=== PATIENT | female | born 1950 | race Caucasian/White ===

== ENCOUNTER 2019-06-09 16:30 | Outpatient (RCR) | payer MEDICARE, OTHER, SELFPAY ==
--- NOTE | 2019-06-13 10:38 | PCCPR ---
Absent r/t coronavirus until further notice. 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
--- NOTE | 2019-06-22 09:48 | PCCPR ---
Program is temporarily suspended due to COVID outbreak.
--- NOTE | 2019-07-06 10:40 | PCCPR ---
Left message for Celi-checking in.
--- NOTE | 2019-07-13 14:41 | PCCPR ---
Called to check in. Left voicemail. Will follow weekly.
--- NOTE | 2019-07-27 13:54 | PCCPR ---
Weekly update call-Left message informing patient of continued closure through the month of July due to the extension of the detention in place order.
--- NOTE | 2019-08-11 13:05 | PCCPR ---
Starting Bi-Weekly calls. Left message for patient.
--- NOTE | 2019-08-25 15:18 | PCCPR ---
Message left for Celi inquiring how everything is going. Asking if she has any questions or concerns. Left our number if she wanted us to return her call. Also let her know we will be calling every couple of weeks for updates from her and our plans to reopen.
--- NOTE | 2019-09-16 13:40 | PCCPR ---
Called Celi today, no answer, message left.
== END 2019-06-09 23:59 | disposition home or self-care (01) ==
LOC: ANHCPREHAB 16:30
PROVIDERS: Visit Provider Internal Medicine Pulmonary Disease
DX: J84.9 Interstitial pulmonary disease, unspecified (principal)
CPT/HCPCS: 97150; G0424

== ENCOUNTER 2024-08-21 12:43 | Emergency (ER) | payer MEDICARE, SELFPAY ==
--- NOTE | ~2024-08-21 | XR_ITS ---
XR abdomen gastric tube rechec Ordering provider: Mohan Chase MD History: . Gastric tube replaced 30 CCS GASTROGRAFIN INSERTED . Comparison: None. FINDINGS: BOWEL: Gastrostomy tube is seen in the area of the stomach with contrast. No leak is noted. Nonobstru ctive bowel gas pattern. ORGANOMEGALY: None. SIGNIFICANT PATHOLOGIC CALCIFICATIONS: None. OTHER: No free air is seen under the diaphragm. Dextroscoliosis IMPRESSION: NO ACUTE ABDOMINAL FINDINGS. Status post replacement of gastrostomy tube. Contrast is seen in the stomach Reviewed, dictated and finalized at location A.
[2024-08-21 12:43] VITALS: BP 112/68; PULSE 94; RESP 16; TEMP 36.6; O2SAT 100
--- OUTSIDE RECORDS SUMMARY | 2024-08-21 13:11 | XMS_ITS | Data Portability ---
Author Organization [facility] OFFICE Address [address] [place] [address] Care Team Providers Care Auto Transport Driver Name Role Phone JEFRY TRUJILLO Primary Care Provider [phone] RAH CAI OTHER Assessment No assessment recorded. Plan of Treatment Reminders Order Date Submit Date Provider Last Modified By Organization Details Last Modified Time Details Appointments None recorded . Lab None recorded . Referral None recorded . Procedures None recorded . Surgeries None recorded . Imaging electroc ardiogra m 2018 019 BRIANNE Not available 0 08:14:28 US, echocard iogram, transtho racic, complete , w/ color flow 2018 019 [email or web address] Not available 9 10:31:59 electroc ardiogra m 2018 019 BRIANNE Not available 9 17:13:59 electroc ardiogra m 2018 019 BRIANNE Not available 9 17:15:21 electroc ardiogra m 2018 019 BRIANNE Not available 9 11:53:40 electroc ardiogra m 2018 019 [email or web address] Not available 9 16:09:20 electroc ardiogra m 2018 019 BRIANNE Not available 9 17:33:00 Medication Orders rosuvast atin 20 mg tablet 2018 019 [email or web address] [facility]/Pharmacy #[id number], [address] [place], [address], 0 10:51:43 propafen one 150 mg tablet 2018 019 INTERFACE [facility], [facility], [place], [address], 9 16:02:56 rosuvast atin 20 mg tablet 2018 019 [address] [place], [address], 0 10:51:43 rosuvast atin 20 mg tablet 2018 019 [address] [place], [address], 0 10:51:43 Xarelto 20 mg tablet 2018 019 [email or web address] [facility] [address] [place], [address], 9 15:06:30 Multaq 400 mg tablet 2018 019 [email or web address] [facility] [address] [place], [address], 9 15:53:29 Patient TargetsNo targets recorded. Patient Instructions Encounter Date Encounter Id Patient Instructions Last Modified By Organization Details Last Modified Time 05/04/2018 [id number] Exercise advised Low cholesterol diet advised Low sodium diet advised. Not available 05/04/2018 17:51:04 This document wa s scribed by Margareth [email or web address] Not available 05/04/2018 17:45:42 06/01/2018 [id number] Exercise advised Low cholesterol diet advised Low sodium diet advised. janet Not available 06/01/2018 16:09:03 08/31/2018 [id number] Exercise advised Low cholesterol diet advised Low sodium diet advised. Not available 08/31/2018 16:03:08 Patient was seen and evaluated by {{Luis Ragsdale VEHICLE MODIFICATION TECHNICIAN-C*}}. Plan of care was discussed with collaborating physician. Note cosigned by {{Luis Ureña MD*}}. [email or web address] Not available 08/31/2018 16:03:02 12/07/2018 [id number] Exercise advised . Low cholesterol diet advised. Low sodium diet advised. [email or web address] Not available 12/07/2018 15:29:52 Scribed by Karie Chase VEHICLE MODIFICATION TECHNICIAN-C Not available 12/07/2018 15:29:25 03/08/2019 [id number] Exercise advised Low cholesterol diet advised Low sodium diet advised Not available 03/08/2019 15:21:25 Scribed by Jelena Payan PA-C Not available 03/08/2019 15:22:51 Reason for Referral None Reported. Results Created Date Observation Date Name Description Value Unit Range Abnormal Flag Note LastModifiedBy Organization Detail LastModifiedTime 06/02/19 19 06/01/2018 elect rocar diogr am Result EKG :Sinus bradyc ardia , Low voltag e , chest leads, Poor R progre ssion in chest leads . Not Available Christopher Ureña MD [address] [place], [place], [address], 06/01/2018 15:29:03 04/20/19 19 01/23/2018 elect rocar diogr am No observ ation record ed. [email or web address] Not Available 2018 10:24:51 04/20/19 19 03/11/2018 elect rocar diogr am No observ ation record ed. [email or web address] Not Available 10/12 18:28:55 04/20/19 19 03/11/2018 elect rocar diogr am No observ ation record ed. [email or web address] Not Available 2018 13:33:12 04/29/19 19 04/22/2018 treluis miguel mill nucle ar stres s test (PROC ) No observ ation record ed. [email or web address] Not Available 2018 15:38:31 05/17/19 19 05/10/2018 CT, angio gram, chest , w/wo contr ast No observ ation record ed. [email or web address] Not Available 2018 12:28:37 06/02/19 19 06/01/2018 elect rocar diogr am No observ ation record ed. [email or web address] Not Available 2018 16:31:15 06/02/19 19 06/01/2018 elect rocar diogr am No observ ation record ed. [email or web address] Not Available 2018 16:40:40 09/01/19 19 08/31/2018 elect rocar diogr am No observ ation record ed. Christopher Ureña MD [address] [facility] [place], [place], [address], 08/31/2018 17:15:41 01/25/20 19 01/13/2019 elect rocar diogr am No observ ation record ed. [email or web address] Not Available 2018 16:55:27 03/03/20 19 03/02/2019 elect rocar diogr am No observ ation record ed. [email or web address] [facility] [employer] [facility] [address] [place] [address], [address], 03/08/2019 11:25:51 03/22/20 19 03/08/2019 elect rocar diogr am No observ ation record ed. [email or web address] Not Available 2018 12:21:28 03/24/20 19 03/08/2019 elect rocar diogr am No observ ation record ed. [email or web address] Not Available 2018 13:37:13 Result Notes None recorded. Problems Name Problem SNOMED Code Status Onset Date Resolution Date Notes Provider Name and Address Organization Details Recorded Time Pulmonary embolism 27735508 Active 2017 36 years ago per patient. DEMARIO Leggett [facility] 8 16:06:07 Fibrosis of lung 37343678 Active 2017 recently diagnosed . DEMARIO Leggett [facility] 8 16:05:45 Dyslipide sahra 846270228 [facility] [place] 8 16:03:22 Mitral valve prolapse 240569711 Active 2017 [facility] of [facility] 16:03:48 Former heavy tobacco smoker 416988967304 100 Active 2017 quit 1992 Martinlucia Mathieu [facility] 8 11:59:48 Anxiety 86808204 Active 2017 [facility] 8 16:04:26 Depressiv e disorder 42484766 [facility] 2017 [facility] 8 16:03:09 Posttraum atic stress disorder 89233106 Active 2017 Diagnosed 3 years ago. [facility] 8 16:04:21 Atrial fibrillat ion 35084748 Active 2017 A-Fib started about 3-weeks ago. [facility] 8 16:05:20 High troponin I level 965357516 Active 2017 Julian Murdock [facility] [place] 8 12:03:03 Essential hypertens ion 39455034 Active 2018 Nel Mejia [facility] [place] 9 14:41:47 Paroxysma l atrial fibrillat ion 069038499 Active 2018 Neumann Brightsharon [facility] [place] 9 14:41:55 Idiopathi c pulmonary fibrosis 728020622 Active 2018 Margareth Ragsdale [facility] [place] 9 16:09:39 Notes:all per patient, 03/24/[facility] Problem Notes None recorded. Procedures Surgical History None recorded. Imaging Results Imaging Date Name Status LastModified by Organization Details LastModified Time 01/23/2018 electrocardiogram completed Informa tion not available 04/21/2018 10:24:51 03/11/2018 electrocardiogram completed [email or web address] Informa tion not available 10/12/2018 18:28:55 03/11/2018 electrocardiogram completed Informa tion not available 04/28/2018 13:33:12 04/22/2018 treadmill nuclear stress test (PROC) completed [email or web address] Information not available 04/29/2018 15:38:31 05/10/2018 CT, angiogram, chest, w/wo contrast completed [email or web address] Information not available 05/30/2018 12:28:37 06/01/2018 electrocardiogram completed Informa tion not available 06/01/2018 16:31:15 06/01/2018 electrocardiogram completed Informa tion not available 06/01/2018 16:40:40 08/31/2018 electrocardiogram completed [email or web address] Christopher Pride MD [address], [place], [address], 08/31/2018 17:15:41 01/13/2019 electrocardiogram completed [email or web address] Informa tion not available 01/24/2019 16:55:27 03/02/2019 electrocardiogram completed [email or web address] [facility] [address] [facility] [place] [address], [address], 03/08/2019 11:25:51 03/08/2019 electrocardiogram completed Informa tion not available 03/22/2019 12:21:28 03/08/2019 electrocardiogram completed Informa tion not available 03/24/2019 13:37:13 Procedure Notes None recorded. Medical Equipment None Reported. Allergies Allergen ID Allergen Name Allergen Category Reaction Reaction Severity Criticality Documentation Date Start Date Code Code System Note Provider Name and Address Organization Details Recorded Time 7299 codeine medicatio n Not available Not available Not available 03/20/2018 2670 RxNorm Hala Mathieu [place], [place] - [facility] 8 12:01:22 7300 Substance with sulfonami de structure and antibacte rial mechanism of action (substanc e) medicatio n Not available Not available Not available 03/20/2018 17247 8003 SNOMED Hala Mathieu [place], [place] - [facility] 8 12:01:35 Medications Name Sig Start Date Stop Date Status Note LastModified by Organization Details LastModified Time atorvastat in 40 mg tablet active Not Available Not Available Not Available propafenon e 150 mg tablet Take 1 tablet twice a day by oral route as directe d. 2019 active Not Available Not Available Not Avai lable atorvastat in 20 mg tablet active Not Available Not Available Not Available azithromyc in 250 mg tablet OD active Not Available Not Available Not Available amiodarone 200 mg tablet Take 1 tablet every day by oral route. 07/13 completed Putting pt back on Multaq. Not Available Not Available Not Available sertraline 100 mg tablet OD active Not Available Not Available Not Available ciprofloxa cooper 500 mg tablet 03/24 completed Not Available Not Available Not Available tramadol 50 mg tablet 03/24 completed Not Available Not Available Not Available rifampin 300 mg capsule X2 tabs, OD active Not Available Not Available No t Available ethambutol 400 mg tablet X1 OD active Not Available Not Available Not Available ethambutol 100 mg tablet X3 OD active Not Available Not Available Not Available propranolo l ER 80 mg capsule,24 hr,extende d release 1 tab OD active Not Available Not Available No t Available sertraline 50 mg tablet OD 03/08 completed Not Available Not Available Not Available naproxen 500 mg tablet PRN active NEEDED 06/01/18 : MA Not Available Not Available Not Available amoxicilli n 875 mg-potassi um clavulanat e 125 mg tablet 12/07 completed Not Available Not Available Not Available escitalopr am 20 mg tablet 03/24 completed Not Available Not Available Not Available cyclobenza yuliya 5 mg tablet PRN 03/08 completed NEEDED 06/01/18 : MA Not Available Not Available Not Available rosuvastat in 10 mg tablet Take 1 tablet every day by oral route as directe d. active Not Available Not Available No t Available rosuvastat in 20 mg tablet 1 tab OD 04/12 completed Not Available Not Available Not Available bupropion HCl XL 150 mg 24 hr tablet, extended release active Not Available Not Available Not Available aspirin 325 mg, od active Not Available Not Available No t Available Calcium 500 1200mg od active Not Available Not Available No t Available Multaq 400 mg tablet Take 1 tablet twice a day by oral route. 08/31 completed Not Available Not Available Not Available Probiotic 1 tab, od active Pt take 1 tab every 24 hours . 06/01/18 : MA Not Available Not Available Not Available amikacin 1,000 mg/4 mL injection solution active Not Available Not Available Not Available Suprep Bowel Prep Kit 17.5 gram-3.13 gram-1.6 gram oral solution 12/07 completed Not Available Not Available Not Available Xarelto 20 mg tablet Take 1 tablet every day by oral route with meals. 03/08 completed Pt take 1 tab 20 mg every 24 hours . 06/01/18 : MA Not Available Not Available Not Available Vitamin D2 1000 mg od active Not Available Not Available No t Available Shingrix (PF) 50 mcg/0.5 mL intramuscu lar suspension , kit active Not Available Not Available Not Available Vitals Date Recorded Body height Body mass index (BMI) Body weight Oxygen saturation Oxygen saturation in Arterial blood by Pulse oximetry Heart rate Systolic blood pressure Diastolic blood pressure Provider Name and Address Organization Details Last Updated DateTime 9 152.4 cm 26.2 kg/m2 37112.3 8 g 97 % 97 % 59 /min 112 mm[Hg] 66 mm[Hg] MIGNON VALERIO [facility] [place] 9 17:25:45 Date Recorded Body height Oxygen saturation Oxygen saturation in Arterial blood by Pulse oximetry Heart rate Body mass index (BMI) Body weight Systolic blood pressure Diastolic blood pressure Provider Name and Address Organization Details Last Updated DateTime 9 152.4 cm 91 % 91 % 59 /min 25 kg/m2 05561.4 6 g 110 mm[Hg] 62 mm[Hg] GEETA English [facility] 9 15:24:22 Date Recorded Body height Body mass index (BMI) Body weight Heart rate Oxygen saturation Oxygen saturation in Arterial blood by Pulse oximetry Systolic blood pressure Diastolic blood pressure Provider Name and Address Organization Details Last Updated DateTime 9 152.4 cm 21.9 kg/m2 74158.3 5 g 89 /min 92 % 92 % 104 mm[Hg] 62 mm[Hg] Jorge Gracia [facility] [place] 9 15:49:14 Date Recorded Body height Body mass index (BMI) Body weight Heart rate Oxygen saturation Oxygen saturation in Arterial blood by Pulse oximetry Systolic blood pressure Diastolic blood pressure Provider Name and Address Organization Details Last Updated DateTime 9 152.4 cm 21.3 kg/m2 58322.5 7 g 72 /min 92 % 92 % 98 mm[Hg] 44 mm[Hg] [facility] 9 15:12:29 Date Recorded Body height Body mass index (BMI) Body weight Heart rate Oxygen saturation Oxygen saturation in Arterial blood by Pulse oximetry Systolic blood pressure Diastolic blood pressure Provider Name and Address Organization Details Last Updated DateTime 9 152.4 cm 19.7 kg/m2 17119.8 3 g 88 /min 89 % 89 % 112 mm[Hg] 56 mm[Hg] [facility] 9 15:04:41 Social History Question Answer Notes LastModified by Applaudizat ion Details LastModified Time Tobacco Smoking Status Former Smoker Not Available [facility] 01/31/2020 03:30:42 What Was The Date Of Your Most Recent Tobacco Screening? 03/24/2018 [id number] Information not available 01/31/2020 Sex: Unknown Functional Status None recorded. Mental Status None recorded. Family History Nothing Reported Notes:Father, post open hear t surgery, mother, history of pacemaker both ; one brother living, unknown. 03/24/18 mwu. Medical History Condition Response Atrial Fibrillation Anemia Y Blood Clot High Cholesterol Y Myocardial Infarction Y Hyperlipidemia Y Heart Disease Y Arrhythmia Hematologic Disease N Gynecological HistoryNo gynecological history recorded. Obstetrics History GPAL:G 0 P 0 0 0 0 Past Encounters Encounter ID Performer Location Encounter Start Date Encounter Closed Date Diagnosis/Indication Diagnosis SNOMED-CT Code Diagnosis ICD10 Code Diagnosis Note [id number] Christopher Ureña MD [place] OFFICE [facility] [place] [address] 03/24/2018 14:43:16 03/29/2018 20:25:10 Paroxysmal atrial fibrillation 344458845 I48.0 Now in NSR. {{On Xarelto# O n Full dose ASA On ASA no need for anti coagulatio n Can not have anti coagulatio n due to bleeding Can not have anti coagulatio n due to risk of bleed}} , will change amiodarone to Multaq 400 bid Dyspnea on exertion 6084 5006 R06.09 Could be angina equivalent Treadmill Myoview Stress test, has high Damar Risk score. Has Known CAD, or CAD risk equivalent . To look for any ischemia. Dyslipidemia 160263798 E 78.5 Essential hypertension 07556773 I10 on InderalNow well controlled [id number] Christopher Ureña MD [place] OFF[facility] [place] [address] 05/04/2018 17:05:50 05/04/2018 23:15:41 Paroxysmal atrial fibrillation 439539953 I48.0 Now in NSR. {{On Xarelto# O n Full dose ASA On ASA no need for anti coagulatio n Can not have anti coagulatio n due to bleeding Can not have anti coagulatio n due to risk of bleed}} , and Multaq 400 bid Dyspnea on exertion 6084 5006 R06.09 Could be angina equivalent Had positive stress test done in 04/22/18 with ischemia in anterior area, normal LV systolic function , EF 76% . Will arrange for cardiac CTA, he has high Damar Risk score. he would benefit from CT to look for any Coronary Artery Disease Dyslipidemia 441121172 E 78.5 Essential hypertension 46793498 I10 on InderalNow well controlled [id number] Christopher Ureña MD [place] OFF[facility] [place] [address] 06/01/2018 14:35:46 06/01/2018 16:10:14 Paroxysmal atrial fibrillation 250463080 I48.0 Now in NSR. {{On Xarelto # On Full dose ASA On ASA no need for anti coagulatio n Can not have anti coagulatio n due to bleeding Can not have anti coagulatio n due to risk of bleed}} , and Multaq 400 bidnow in NSROK To DC Xarelto, and start on ASA Full dose Dyspnea on exertion 6084 5006 R06.09 denies any dyspnea at present Dyslipidemia 167991670 E 78.5 on Rosuvastat in 20mg. on 03/26/18 FLP: TR 101, TC 159, HDL 66, LDL 75 Essential hypertension 39824149 I10 on InderalNow well controlled - 110/62 [id number] Christopher Ureña MD [place] OFF[facility] [place] [address] 08/31/2018 15:17:49 09/06/2018 20:36:55 Paroxysmal atrial fibrillation 835687358 I48.0 Remains in NSR at a controlled rate.She was started on Amiodarone in the hospital then it was discontinu ed and changed to Multaq but made her very sick so she was changed to propafenon e 150 mg PO BID. She is also on Propranolo l and is doing well with thatOn full dose ASA. Dyspnea on exertion 6084 5006 R06.09 Stable at present.Bajwa d cardiac CTA done in 05/10/18 showed No significan t coronary artery disease.id iopathy pulmonary fibrosis, pulmonary hypertensi on Dyslipidemia 506598483 E 78.5 Needs to keep LDL less than 70, and HDL more than 40 Will get lipid profile results from PCP Continue statin. Essential hypertension 93845561 I10 Stable on Inderal. Also being used to migraine headaches. Pulmonary embolism 31236 003 I26.99 distant hx of. Idiopathic pulmonary fibrosis 829675704 J84.112 She follows a pulmonolog ist at [facility] for idiopathy pulmonary fibrosis and pulmonary HTN. Having a CT scan November 09. [id number] Christopher Ureña MD [place] OFF[facility] [place] [address] 12/07/2018 15:01:09 12/07/2018 15:49:46 Paroxysmal atrial fibrillation 971846682 I48.0 Remains in NSR at a controlled rate.She was started on Amiodarone in the hospital then it was discontinu ed and changed to Multaq but made her very sick so she was changed to propafenon e 150 mg PO BID. She is also on Propranolo l and is doing well with thatOff Xarelto. On full dose ASA. Dyspnea on exertion 6084 5006 R06.09 Stable at present.Bajwa d cardiac CTA done in 05/10/18 showed No significan t coronary artery disease.id iopathy pulmonary fibrosis, pulmonary hypertensi on Dyslipidemia 126247721 E 78.5 Needs to keep LDL less than 70, and HDL more than 40 Scheduled for lipid profile with her PCP tomorrow Continue statin. Essential hypertension 74547829 I10 Stable on Inderal. Also being used to migraine headaches. Idiopathic pulmonary fibrosis 066401068 J84.112 She follows a pulmonolog ist at [facility] for idiopathy pulmonary fibrosis and pulmonary HTN. Had a CT which showed a new nodule. Patient will continue to follow up with the pulmonolog ist. Pulmonary embolism 46444 003 I26.[place]. [id number] Christopher Ureña MD [address] [place] [address] 03/08/2019 14:35:34 03/08/2019 15:33:06 Paroxysmal atrial fibrillation 896464037 I48.0 Remains in NSR at a controlled rate.She was started on Amiodarone in the hospital then it was discontinu ed and changed to Multaq but made her very sick so she was changed to propafenon e 150 mg PO BID. She is also on Propranolo l and is doing well with thatOff Xarelto. On full dose ASA. Dyspnea on exertion 6084 5006 R06.09 Stable at present.Bajwa d cardiac CTA done in 05/10/18 showed No significan t coronary artery disease.id iopathy pulmonary fibrosis, pulmonary hypertensi on Dyslipidemia 697891023 E 78.5 Needs to keep LDL less than 70, and HDL more than 40 LDL 75 Continue statin. Essential hypertension 06361561 I10 Stable on Inderal. Also being used for migraine headaches. Idiopathic pulmonary fibrosis 151734382 J84.112 She follows a pulmonolog ist at [facility] for idiopathy pulmonary fibrosis and pulmonary HTN. Had a CT which showed a new nodule. Patient will continue to follow up with the pulmonolog ist. Pulmonary embolism 82042 003 I26.99 distant hx of PE, no recurrence Health Concerns Section Related Observation LastModified by Organization Detai ls LastModified Time None Recorded Concern Status LastModified by Organization Details LastModified Time None Recorded Advance Directives Directive None Recorded Payers Insurance Date Sequence Insurance Name Policy Number Policy Velázquez Covered Member ID Velázquez Member ID Guarantor Name 04/04/2019 2 [employer] Celi Collins [id number] Celi Collins 04/04/2019 1 [place] Celi Collins [id number] Celi oCllins Notes Date Note Type Note Provider Name and Address Organization Details Recorded Time 05/04/2018 text/html 05/04/18 CC: Palpitation 68 year-old woman with a PMH of paroxysmal atrial fibrilation, PE, hypertension, former tobacco dependence, is here for follow-up. She was in the hospital with afib, and diastolic Congestive Heart Failure in 02/2018. She then converted to NSR, was started on Amiodarone, she feels well now. Very rare palpitations. Also had NSTEMI. she now feels OK, she had nausea, and abdominal pain, she thinks it is from Multaq. Had positive stress test done in 04/22/18 with ischemia in anterior area, normal LV systolic function , EF 76% .No known history of coronary artery disease, previous myocardial infarction, heart failure, valvular heart disease,or stroke reported. Denies chest pain. Denies shortness of breath at rest. Denies dyspnea on exertion. No orthopnea. No PNDs. Denies heart palpitations. Denies dizziness. Denies syncope or near syncope. No ankle or leg edema. No major bleeding events. No reported side effects from medications. Taking medications as prescribed with no missed doses. Denies snoring, daytime somnolence and AM headache. Results from this visit, or from the past: CMP, serum or plasma 03-26-2018 03/26/18 CMP: GL 96, B 16, CR 0.80, NA 140, K 4.5, CH 104, CO2 27, AST 23, ALT 17 lipid panel, blood 03-26-2018 03/26/18 FLP: TR 101, TC 159, HDL 66, LDL 75 Attachment contains 2 Lab Results including: CMP, serum or plasma 1 Historical EKG Sinus Bradycardia, Low voltage chest leads, Poor R progression in chest leads. 03/24/18 Christopher Ureña MD [address] [place], [address], [facility] 05/04/2018 23:15:39 06/01/2018 text/html 06/01/18 CC: Palpitations follow-up 68 year-old white woman with a PMH of paroxysmal atrial fibrilation, PE, hypertension, former tobacco dependence, is here for follow-up. She was here last one month ago. Since then she has been doing fairy well. She was in the hospital with afib, and diastolic Congestive Heart Failure in 02/2018. She then converted to NSR, was started on Amiodarone, it was discontinued and is now on Multaq. Denies chest pain. Denies shortness of breath at rest. Denies dyspnea on exertion. No orthopnea. No PNDs. She has rare heart palpitations. Denies dizziness. Denies syncope or near syncope. No ankle or leg edema. No major bleeding events. Only reported side effects from medications was diarrhea which she believes is from the Sertraline, but symptoms are not as bad as they had been. Taking medications as prescribed with no missed doses. She does snore at night, had a negative sleep study in the past. Does not get but four hours of sleep at night. Had positive stress test done in 04/22/18 with ischemia in anterior area, normal LV systolic function , EF 76%. Had cardiac CTA done in 05/10/18 showed No significant coronary artery disease. No previous myocardial infarction, heart failure, valvular heart disease,or stroke reported. Results from this visit, or from the past:03/26/18 FLP: TR 101, TC 159, HDL 66, LDL CMP: GL 96, B 16, CR 0.80, NA 140, K 4.5, CH 104, CO2 27, AST 23, ALT FLP: TR 101, TC 159, HDL 66, LDL 75 EKG 06/01/18 :Sinus bradycardia , Low voltage , chest leads, Poor R progression in chest leads .EKG 03/24/18 : Sinus Bradycardia, Low voltage chest leads, Poor R progression in chest leads.EKG Sinus Bradycardia, Low voltage chest leads, Poor R progression in chest leads. 03/24/18 05/10/18 CTA Chest: No significant coronary artery disease. 04/22/18-Positive stress test.Reversible defect consistent with ischemia in anterior area. Normal LV systolic function. LVEF 76%. Christopher Ureña MD [address] [place], [address], [facility] 06/01/2018 16:10:12 08/31/2018 text/html 08/31/18 CC: Palpitations follow-up 68 year-old white woman with a PMH of paroxysmal atrial fibrilation, PE, idiopathy pulmonary fibrosis, pulmonary hypertension, hypertension, former tobacco dependence presents today for follow-up. She was here last 3 months ago. Down 6 lbs. Reports that food doesn't taste the same anymore. Since then she has been doing ok but not great. For the last three days, she reports some fatigue and SOB. Denies any fever, chills or syncope. Admites on having some lightheadedness. She was in the hospital with afib, and diastolic Congestive Heart Failure in 02/2018. She then converted to NSR, was started on Amiodarone, it was discontinued and changed to Multaq but made her very sick so she was changed to propafenone 150 mg PO BID. She is also on Propranolol and is doing well with that. She is currently in NSR with a controlled rate. Denies chest pain. Denies shortness of breath at rest. Denies dyspnea on exertion. No orthopnea. No PNDs. She has rare heart palpitations. Denies dizziness. Denies syncope or near syncope. No ankle or leg edema. No major bleeding events. Only reported side effects from medications was diarrhea which she believes is from the Sertraline, but symptoms are not as bad as they had been. Taking medications as prescribed with no missed doses. She does snore at night, had a negative sleep study in the past. Does not get but four hours of sleep at night. Had positive stress test done in 04/22/18 with ischemia in anterior area, normal LV systolic function , EF 76%. Had cardiac CTA done in 05/10/18 showed No significant coronary artery disease. No previous myocardial infarction, heart failure, valvular heart disease,or stroke reported. She follows a personal banking assistant at [facility] for idiopathy pulmonary fibrosis and pulmonary HTN. Having a CT scan November 09. Results from this visit, or from the past:03/26/18 FLP: TR 101, TC 159, HDL 66, LDL CMP: GL 96, B 16, CR 0.80, NA 140, K 4.5, CH 104, CO2 27, AST 23, ALT FLP: TR 101, TC 159, HDL 66, LDL 75 EKG 08/31/18 AM Probably old anterior myocardial infarction EKG 06/01/18 :Sinus bradycardia , Low voltage , chest leads, Poor R progression in chest leads .EKG 03/24/18 : Sinus Bradycardia, Low voltage chest leads, Poor R progression in chest leads.EKG Sinus Bradycardia, Low voltage chest leads, Poor R progression in chest leads. 03/24/18 05/10/18 CTA Chest: No significant coronary artery disease. 04/22/18-Positive stress test.Reversible defect consistent with ischemia in anterior area. Normal LV systolic function. LVEF 76%. Margareth Ragsdale [facility] 09/06/2018 20:36:54 12/07/2018 text/html 12/07/18CC: Palpitations follow-up 68 year-old white woman with a PMH of paroxysmal atrial fibrilation, PE, idiopathy pulmonary fibrosis, pulmonary hypertension, hypertension, former tobacco dependence presents today for follow-up. She was here last 3 months ago. Down 3 lbs. Reports that she is reintroducing new foods into her diet but continues to fell sick after eating meals. Since then she has been doing ok but not great. Patient scheduled for colonoscopy in December. Taking care of daily living actives at home but not exercising.Patient doing better with the propafenone however did not want to get a EKG at this time. Patient states that since she has been lossing the weight that bras feel that they are compressing her at this time. Denies chest pain. Denies shortness of breath at rest. Denies dyspnea on exertion. No orthopnea. No PNDs. She has rare heart palpitations. Denies dizziness. Denies syncope or near syncope. No ankle or leg edema. No major bleeding events. Taking medications as prescribed with no missed doses. She does snore at night, had a negative sleep study in the past. Does not get but four hours of sleep at night. Had positive stress test done in 04/22/18 with ischemia in anterior area, normal LV systolic function , EF 76%. Had cardiac CTA done in 05/10/18 showed No significant coronary artery disease. No previous myocardial infarction, heart failure, valvular heart disease,or stroke reported. 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 03/24/18 05/10/18 CTA Chest: No significant coronary artery disease. 04/22/18-Positive stress test.Reversible defect consistent with ischemia in anterior area. Normal LV systolic function. LVEF 76%. Obdulia Tapia [place], [place] - [facility] 12/07/2018 15:49:43 03/08/2019 text/html 03/08/19 CC: Palpitations follow-up 68 year-old white woman with a PMH of paroxysmal atrial fibrilation, PE, idiopathy pulmonary fibrosis, pulmonary hypertension, hypertension, former tobacco dependence presents today for follow-up. She was here last 3 months ago. 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 Needs monthly ecg to monitor for QT interval. (On azithromycin, ethambutol, and rifampin.)Reports feeling depressed, with fatigue. Taking care of daily living activites at home but not exercising. Patient doing better with the propafenone. Denies chest pain. Denies shortness of breath at rest. Denies dyspnea on exertion. No orthopnea. No PNDs. She has rare heart palpitations. Denies dizziness. Denies syncope or near syncope. No ankle or leg edema. No major bleeding events. Taking medications as prescribed with no missed doses. She does snore at night, had a negative sleep study in the past. Does not get but four hours of sleep at night. Had positive stress test done in 04/22/18 with ischemia in anterior area, normal LV systolic function , EF 76%. Had cardiac CTA done in 05/10/18 showed No significant coronary artery disease. No previous myocardial infarction, heart failure, valvular heart disease,or stroke reported. She follows a personal banking assistant at [facility] for idiopathy pulmonary fibrosis and pulmonary HTN.Results from this visit, or from the past:03/26/18 FLP: TR 101, TC 159, HDL 66, LDL CMP: GL 96, B 16, CR 0.80, NA 140, K 4.5, CH 104, CO2 27, AST 23, ALT FLP: TR 101, TC 159, HDL 66, LDL 75 EKG, 03/08/19: Sinus rhythm. ABN EKG. 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 03/24/18 05/10/18 CTA Chest: No significant coronary artery disease. 04/22/18-Positive stress test.Reversible defect consistent with ischemia in anterior area. Normal LV systolic function. LVEF 76%. tico [place] - [facility] 03/16/2019 11:55:25 OBGyn Episode No OBEpisode recorded.
--- OUTSIDE RECORDS SUMMARY | 2024-08-21 13:11 | XMS_ITS | Encounter Summary ---
Author Organization [facility] Address [address] [facility] [address] [place] [address] Phone Care Team Providers Care Mobile Home Set Up Person Name Role Phone JesseMineSheryl Blackmon MD Unavailable Brenda Harris MD Unavailable [phone] Christopher Ureña MD Unavailable [phone] Jerrica tSacy MD Primary Care Provi tamar Brenda Harris MD Unavailable Michlea Nuno MD Unavailable [phone] Carlyn Shaffer MD Unavailable Josey Morgan RN Unavailable Valeria Johana Cherry Unavailable Lucio Plummer MD Unavailable [phone] Jerrica Stacy MD Primary Care Provi tamar Encounter Details Date Type Department Care Team (Latest Contact Info) Description 08/02/2019 Orders Only [facility] Scanning, Provider Social History Tobacco Use Types Packs/Day Years Used Date Smoking Tobacco: Former Smokeless Tobacco: Never Comments:Smoking History Pac ks/day: 2.5 Packs Alcohol Use Standard Drinks/Week Comments Not Currently 0 (1 standard drink = 0.6 oz pur e alcohol) AUDIT-C Answer Date Recorded Frequency of Alcohol Consumption Never 02/10/2019 Average Number of Drinks Not on file 019 Frequency of Binge Drinking Not on file 01/28 PHQ-2 Answer Date Recorded PHQ-2 Score 2 11/26/2018 Comments Unknown Sex and Gender Information Value Date Recorded Sex Assigned at Not on file Legal 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 Gender Identity Not on file Sexual Orientation Not on file documented as of this encounter Plan of Treatment Scheduled Procedures Name Priority Associated Diagnoses Date/Ti me ESOPHAGOGASTRODUODENOSCOPY Iron deficiency anemia, unspecified iron deficiency anemia type Non-intractable vomiting with nausea, unspecified vomiting type documented as of this encounter Procedures Procedure Name Priority Date/Time Associated Diagnosis Comments SCAN - LABS 08/02/2019 documented in this encounter Results * SCAN - LABS (08/02/2019) Provider Scanning Final Result documented in this encounter Visit Diagnoses Not on filedocumented in this encounter Additional Health Concerns Infection Onset Date Last Indicated Resolved Time COVID: Suspected 01/01/2023 01/01/2023 01/02/2023 1:50 AM CDT Exposure, airborne and conta ct Comment:01/05/2023 Patient's RVP is negative no concern for exposure IP Myrna Grimm RN 01/01/2023 01/01/2023 01/05/2023 4:10 PM C DT Ring Surveillance Comment:01/28/2024 IP Review: negative CRE swab from [facility] surveillance. Angelica Hill RN [address] [facility] 01/23/2024 01/23/2024 01/28/2024 1:38 PM C DT C. difficile suspected 02/10/2024 02/10/202402/09 7:46 PM TOUCH UP WORKER documented as of this encounter Care Teams Mobile Home Set Up Person Relationship Specialty Start Date End Date Jerrica Stacy MD PCP - General Internal Medicine 03/03/19 02/10/24 Jerrica Stayc MD [address] [facility] [address] [place] [address] PCP - General Internal Medicine 02/11/24 Sheryl Morgan MD Referring Physician Endocrinology Diabetes & Metabolism 11/26/18 Brenda Harris MD Referring Physician Pulmonary Disease 11/26/18 06/09/21 Christopher Ureña MD Referring Physician Cardiovascular Disease 11/26/18 Brenda Harris MD [address] [facility] [address] [place] [address] Referring Physician Pulmonary Disease 06/10/21 Michela Nuno MD [address] [facility] [place] [address] Consulting Physician Colon and Rectal Surgery 12/20/21 Carlyn Shaffer MD [phone] [place] [address] Surgeon Colon and Rectal Surgery 02/18/22 Josey Morgan, RN Registered Nurse Pulmonary Disease 04/01/22 Johana Adame, IN STORE REPRESENTATIVE [address] [place] [address] Speech Language Pathologist Speech Therapy 10/31/22 Lucio Plummer MD [address] [facility] [address] [place] [address] Consulting Physician Cardiology 04/23/23 documented as of this encounter
--- OUTSIDE RECORDS SUMMARY | 2024-08-21 13:11 | XMS_ITS | Encounter Summary ---
Author Organization [facility] Address [address] [place] [address] Care Team Providers Care Marketing Clerk Name Role Phone Sheryl Morgan MD Unavailable [phone] Brenda Harris MD Unavailable Christopher Ureña MD Unavailable [phone] Jerrica Stacy MD Primary Care Provi tamar Brenda Harris MD Unavailable Michela Nuno MD Unavailable [phone] Carlyn Shaffer MD Unavailable [phone] Josey Morgan RN Unavailable Valeria Johana Cherry Unavailable [phone] Lucio Plummer MD Unavailable Jerrica Stacy MD Primary Care Provi tamar Encounter Details Date Type Department Care Team (Late st Contact Info) Description 06/06/2020 Telephone [facility] [address] [facility] [address] [place] [address] Patti Dye, RT Social History Tobacco Use Types Packs/Day Years [...] file 01/28 PHQ-2 Answer Date Recorded PHQ-2 Total Score (If total score is 3 or more points, staff should administer the PHQ-9) 2 12/01/2019 Comments No Sex and Gender Information Value Date Recorded Sex Assigned at Not on file Legal 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 Gender Identity Not on file Sexual Orientation Not on file documented as of this encounter Plan of Treatment Scheduled Procedures Name Priority Associated Diagnoses Date/Ti mo ESOPHAGOGASTRODUODENOSCOPY Iron deficiency anemia, unspecified iron deficiency anemia type Non-intractable vomiting with nausea, unspecified vomiting type documented as of this encounter Visit Diagnoses Not on filedocumented in this encounter Additional Health Concerns Infection Onset Date Last Indicated Resolved Time COVID: Suspected 01/01/2023 01/01/2023 01/02/2023 1:50 AM CDT Exposure, airborne and conta ct Comment:01/05/2023 Patient's RVP is negative no concern for exposure IP Myrna Grimm RN 01/01/2023 01/01/2023 01/05/2023 4:10 PM C DT Ring Surveillance Comment:01/28/2024 IP Review: negative CRE swab from [facility] surveillance. Angelica Hill RN [address] [facility] 01/23/2024 01/23/2024 01/28/2024 1:38 PM C DT C. difficile suspected 02/10/2024 02/10/202402/09 7:46 PM INSULATION MECHANIC documented as of this encounter Care Teams Marketing Clerk Relationship Specialty Start Date End Date Jerrica Stacy MD PCP - General Internal Medicine 03/03/19 02/10/24 Jerrica Stacy MD [address] [facility] [address] [place] [address] PCP - General Internal Medicine 02/11/24 Sheryl Morgan MD Referring Physician Endocrinology Diabetes & Metabolism 11/26/18 Brenda Harris MD Referring Physician Pulmonary Disease 11/26/18 06/09/21 Christopher Ureña MD Referring Physician Cardiovascular Disease 11/26/18 Brenda Harris MD [address] [facility] [address] [place] [address] Referring Physician Pulmonary Disease 06/10/21 Michela Nuno MD [address] [facility] [address] [place] [address] Consulting Physician Colon and Rectal Surgery 12/20/21 Carlyn Shaffer MD [phone] [place] [address] Surgeon Colon and Rectal Surgery 02/18/22 Josey Morgan, FILIPE Registered Nurse Pulmonary Disease 04/01/22 Johana Adame, FINANCIAL SERVICES AUDITOR [address] [place] [address] Speech Language Pathologist Speech Therapy 10/31/22 Lucio Plummer MD [address] [facility] [address] [place] [address] Consulting Physician Cardiology 04/23/23 documented as of this encounter
--- OUTSIDE RECORDS SUMMARY | 2024-08-21 13:11 | XMS_ITS | Encounter Summary ---
Author Organization [facility] Address [address] [facility] [address] [place] [address] Phone Care Team Providers Care Advance Agent Name Role Phone Sheryl Morgan MD Unavailable [phone] Brenda Harris MD Unavailable [phone] Christopher Ureña MD Unavailable [phone] Brenda Harris MD Primary Care Provider [phone] Jerrica Stacy MD Primary Care Provi tamar Brenda Harris MD Unavailable [phone] Michela Nuno MD Unavailable [phone] Carlyn Shaffer MD Unavailable [phone] Josey Morgan RN Unavailable Valeria Johana Cherry Unavailable [phone] Lucio Plummer MD Unavailable [phone] Jerrica Stacy MD Primary Care Provi tamar Encounter Details Date Type Department Care Team (Latest Contact Info) Description 03/02/2019 Orders Only [facility] Scanning, Provider [...] on file Legal 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: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 ENGINEER Gender Identity Not on file Sexual Orientation Not on file documented as of this encounter Plan of Treatment Scheduled Procedures Name Priority Associated Diagnoses Date/Ti me ESOPHAGOGASTRODUODENOSCOPY Iron deficiency anemia, unspecified iron deficiency anemia type Non-intractable vomiting with nausea, unspecified vomiting type documented as of this encounter Procedures Procedure Name Priority Date/Time Associated Diagnosis Comments CARDIOLOGY DOCUMENT SCAN 03/02/2019 documented in this encounter Results * SCAN - CARDIOLOGY (03/02/2019) Anatomical Region Laterality Modality Other Provider Scanning CV CARDIAC SERVICES PROCEDURES Final Result documented in this encounter Visit [...] Comment:01/28/2024 IP Review: negative CRE swab from [facility] surveillance. Angelica Hill RN [address] [facility] 01/23/2024 01/23/2024 01/28/2024 1:38 PM C DT C. difficile suspected 02/10/2024 02/10/202402/09 7:46 PM YIELD ENGINEER documented as of this encounter Care Teams Advance Agent Relationship Specialty Start Date End Date Brenda Harris MD [address] [place] [address] PCP - General 03/02/19 03/02/19 Jerrica Stacy MD [address] [place] [address] PCP - General Internal Medicine 03/03/19 02/10/24 Jerrica Stacy MD [address] [facility] [address] [place] [address] PCP - General Internal Medicine 02/11/24 Sheryl Morgan MD Referring Physician Endocrinology Diabetes & Metabolism 11/26/18 Brenda Harris MD Referring Physician Pulmonary Disease 11/26/18 06/09/21 Christopher Ureña MD Referring Physician Cardiovascular Disease 11/26/18 Brenda Hraris MD [address] [facility] [address] [place] [address] Referring Physician Pulmonary Disease 06/10/21 Michela Nuno MD [address] [place], [place] [id number] Consulting Physician Colon and Rectal Surgery 12/20/21 Carlyn Shaffer MD [address] [facility] [phone] [place] [address] Surgeon Colon and Rectal Surgery 02/18/22 Josey Morgan, RN Registered Nurse Pulmonary Disease 04/01/22 Johana Adame, LEGAL ADMINISTRATOR [address] [facility] [address] [place] [address] Speech Language Pathologist Speech Therapy 10/31/22 Lucio Plummer MD [address] [facility] [address] [place] [address] Consulting Physician Cardiology 04/23/23 documented as of this encounter
--- OUTSIDE RECORDS SUMMARY | 2024-08-21 13:11 | XMS_ITS | Clinical Summary ---
Author Organization [facility] Address [address] [place] [address] Care Team Providers Care Entry Specialists Name Role Phone Sheryl Morgan MD Unavailable Brenda Harris MD Unavailable Michela Nuno MD Unavailable [phone] Carlyn Shaffer MD Unavailable [phone] Josey Morgan RN Unavailable Valeria vailable Johana Adame ORTHODONTIST ASSISTANT Unavailable Lucio Plummer MD Unavailable [phone] Jerrica Stacy MD Primary Care Provi tamar Allergies Active Allergy Reactions Criticality Noted Date Comments Codeine Dizziness Low 01/16/2011 Sulfa (Sulfonamide Antibiotics) Rash Medium Sumatriptan Nausea & Vomiting Low 01/11/2016 Topiramate Nausea & Vomiting Low 05/22/2015 Medications oxygenIndicatio ns:Dyspnea,at night and as needed for dyspnea Inhale 4 L/min as needed (as needed for dyspnea). Indications: trouble breathing, at night and as needed for dyspnea Active propafenone (RYTHMOL) 150 mg tabletIndicatio ns:Prevention of Recurrent Atrial Fibrillation Administer per tube 1 tablet (150 mg total) 2 (two) times a day 60 tablet 11 02/02/20 24 025 Active aspirin 81 mg enteric coated tabletIndicatio ns:Myocardial Reinfarction Prevention Administer per tube 1 tablet (81 mg total) daily 30 tablet 11 02/02/20 24 025 Active nutritional supplements (Nutren 2.0) 0.08 gram-2 kcal/mL liquidIndicatio ns:nutrition 875 mL by Gastrostomy Tube (FDB) route daily. administer 3.5 cans (250ml per can) at 60ml/hr over 14 hours via Gtube, (pt administers 5pm-7am), 120ml water flush before/after feedings/meds and flush during the day as needed. Indications: nutrition Active predniSONE (DELTASONE) 5 mg tablet Take 1 tablet (5 mg) by mouth daily 30 tablet 3 04/11/19 25 Active midodrine (PROAMATINE) 10 mg tabletIndicatio ns:Symptomatic Orthostatic Hypotension Take 1 tablet (10 mg total) by mouth every 8 (eight) hours 270 tablet 3 04/13/19 25 026 Active sertraline (ZOLOFT) 20 mg/mL concentrated solution Take 10 mL (200 mg total) by mouth daily 300 mL 05/11/19 25 026 Active mirtazapine (REMERON) 15 mg tabletIndicatio ns:Post Traumatic Stress Disorder TAKE 1 TABLET NIGHTLY 90 tablet 1 08/19/19 25 Active mirtazapine (REMERON) 15 mg tabletIndicatio ns:Post Traumatic Stress Disorder TAKE 1 TABLET NIGHTLY 90 tablet 1 01/31/20 24 025 Discontinued Active Problems Problem Noted Date Diagnosed Date UTI (urinary tract infection) 02/02/2024 Assessment & Plan (02/02/2024 4:46 PM SENIOR PASTOR): Urine has bad odor Prescribed ciprofloxacin 500 mg bid for 5 days Anemia 01/25/2024 Assessment & Plan (02/01/2024 6:14 PM SENIOR PASTOR): Normocytic anemia, iron studies with low iron and transferrin sat from 01/22- iron deficiency anemia -continue to monitor Sore throat 01/24/2024 Assessment & Plan (01/31/2024 4:28 PM SENIOR PASTOR): Sore throat and throat ulcer likely due endotracheal intubation for PEG tube Per anesthesia she was a hard intubation On exam throat is red with ulcer -HSV oral swab positive PCR HSV oral swab positive. Discussed w/ ID and it could be reactivation due to body stress state and would recommend to treat rather than not treat given her risk factors. Sore throat likely d/t irriation from ET but can treat. Recommended valacyclovir 2g PO BID x 1 day or acyclovir 400mg 5 times a day x 5 days -s/p valacyclovir 2g PO BID x 1 day -anesthetic throat spray t.i.d. bruise of left eye 01/24/2024 Assessment & Plan (01/30/2024 2:39 PM CDT): She is noted to have bruise on left eye. It is likely more visible because of the IV fluids and she is more hydrated. She fell a few weeks ago and hit her left eye. She did not get CT head or go to ED. Denies pain or blurry vision. CT head this admission without orbital fracture. -continue to monitor Hypotension 01/23/2024 Assessment & Plan (02/23/2024 4:45 PM SENIOR PASTOR): Encouraged her to follow up with her jammer hooker to discuss the possibility of adrenal insufficiency. Back on prednisone 5mg daily in the meantime. Midodrine helping as well, continue 10mg TID Assessment & Plan (02/01/2024 10:55 PM SENIOR PASTOR): Developed hypotension after general anesthesia for PEG placement 01/21, received proprol 10mg/ml, phenylephrine 100mcg/ml, and succinylcholine Concern for adrenal insufficiency due to chronic steroid use, however no clear cause this time; infectious work up negative, reports hx of chronic hypotension with baseline systolic BP in 100s -TTE 01/24- LVEF 75, RV pressure overlaod, grade I DD, LV global stain, PASP 47mmhg -asymptomatic, mental status intact -required ICU admission for vasopressors, infectious workup negative, did get hydrocortisone q6h for 5 days now returned to home prednisone dose. -continue midodrine 5 mg q8hr, BP low but stable -cw home prednisone 5 mg po daily Malnutrition compromising bodily function 2023 Assessment & Plan (01/25/2024 12:06 PM CDT): BMI 14.17, 32.9kg on admission. 60lb reported weight loss over past 3 years 2/2 decreased appetite. Poor food intake but supplementing with Boost 4-6x/day. Admitted for G-tube placement per outpatient Pulmonology team. -RD following -S/p PEG tube placement and dilation of gastric stenosis at the pylorus by GI on 01/21 -ORTHODONTIST ASSISTANT eval for dysphagia, cleared patient for regular diet and to swallow pills Plan -TF started, will monitor for refeeding syndrome. 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 Recent TTE with PASP 34 +RAP with R[facility] notable for PAP 50/18/15, PCWP 5, TPG 24, and PVR 9.2. She is planning on starting Treprostinil in the outpatient setting, but this has not been initiated yet. - Continue outpatient follow-up Assessment & Plan (01/19/2024 10:07 PM CDT): Recently diagnosed on R[facility] 11/10/23 with PAP 50/18/29 mmHg, pulmonary wedge pressure 5mmHg, c/w mild-moderate pHTN. Normal LV and RV filling pressures. Likely group 3 due to ILD. Apparently had normal sleep study in the past but no actual sleep study in chart records. - Consult PH service as discussed elsewhere Assessment & Plan (11/27/2023 11:29 AM CDT): Confirmed on recent C Vertigo 08/31/2023 Assessment & Plan (08/31/2023 12:04 PM CDT): Present for a couple of months, mostly in the morning rolling over in bed, resolves quickly (<1 min) c/w BPPV Declined [place] today but counseled on [employer] and encouraged her to reach out if symptoms don't resolve Shakiness 02/09/2023 Assessment & Plan (06/22/2023 11:29 AM CDT): This is a common side effect of steroidss. She does not want treatment with propranolol. Encouraged to update TFTs Could be side effect of mirtazapine or SSRI; she will let me know if that worsens when we increase the dose. Given the higher concern of her weight loss, and her ability to cope with her tremor, we will not make any changes today. Assessment & Plan (02/09/2023 4:33 PM SENIOR PASTOR): This is a common side effect of steroids but she has been off for 10 days Encouraged to update TFTs Could be side effect of mirtazapine; she will let me know if that worsens when we increase the dose Dysphagia 01/01/2023 Assessment & Plan (06/22/2023 10:55 AM CDT): EGD May 2022 w/ normal esophagus, gastric pyloric stenosis s/p dilation, normal duodenum. She has seen outpatient ORTHODONTIST ASSISTANT and reports improvement in her swallowing from diligent completion of exercises. She reports ongoing reduced taste and poor appetite. Pt reports eating is no longer enjoyable. - Consider repeat EGD for pyloric dilation, will defer to PCP. - Able to eat food w/o difficulty. Most difficulty with pills. Assessment & Plan (01/08/2023 10:08 AM CDT): Worsening recently, to both solids and liquids. EGD May 2022 w/ normal esophagus, gastric pyloric stenosis s/p dilation, normal duodenum. She has seen outpatient ORTHODONTIST ASSISTANT and reports improvement in her swallowing from diligent completion of exercises. She reports ongoing reduced taste and poor appetite. Pt reports eating is no longer enjoyable. - Consider repeat EGD for pyloric dilation, will defer to PCP. - Able to eat food w/o difficulty. Most difficulty with pills. Phlegm in throat 12/22/2022 Assessment & Plan (12/22/2022 11:44 AM CDT): Working with speech pathologist Discussed taking PPI on an empty stomach Consider adding saline rinses to Flonase; defers azelastine Could also be manifestation of anxiety/globus sensation Mitral regurgitation 12/22/2022 Assessment & Plan (12/22/2022 11:48 AM CDT): Mild on TTE in July but if CT/PFTs don't provide answer to worsening SOB would repeat TTE Acute gastric ulcer without mention of hemorrhage or perforation, with obstruction(531.31) 06/05/2022 Overview (06/05/2022): Added automatically from request for surgery [id number] 06/05/2022 Overview (06/05/2022): Added automatically from request for surgery [id number] Assessment & Plan (02/09/2023 4:28 PM SENIOR PASTOR): Unclear if side effect of eating more food, mirtazapine, or probiotic but unlikely to represent worrisome etiology Could experiment with stopping the probiotic again Epistaxis 06/02/2022 Assessment & Plan (06/02/2022 2:41 PM SENIOR PASTOR): Resolved with minimal intervention ([place] nasal spray)- CTM Bruxism 06/02/2022 Assessment & Plan (06/02/2022 2:43 PM SENIOR PASTOR): Will follow up with dentist re: nightguard Consider trial of magnesium at night 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 Overview (02/18/2022): Added automatically from request for surgery [id number] Hemorrhoids 12/03/2021 Assessment & Plan (12/03/2021 1:56 PM CDT): Start fiber supplement and using Squatty Potty, work on hydration, start stool softener PRN Anorexia 10/01/2021 Assessment & Plan (06/22/2023 11:24 AM CDT): On mirtazapine at night Could see if dronabinol would help her if she lost weight again, or medical MJ Assessment & Plan (10/01/2021 4:07 PM CDT): Likely multifactorial - suspect her antibiotics are playing a role, possibly stress Could consider adding on mirtazapine at night- she will think about this She will keep an eye on her weight and will work on getting more regular meals/snacks in (ensure) Could see if dronabinol would help her if she lost weight again, or medical MJ Nausea 09/09/2021 Assessment & Plan (12/03/2021 1:40 PM CDT): May be from PUD, stress/functional disorder, or her extensive med regimen Now on BID PPI as above, needs to update EGD to document healing Discussed trial of TCA but she already feels like she is on too many meds She is unsure if stopping the iron supplement helped her nausea Assessment & Plan (10/01/2021 4:14 PM CDT): May be related to gastric ulcer which hasn't yet healed I suspect her antibiotic regimen and stress also contribute Continue PPI; she cannot tolerate sucralfate pills but will try crushing it and taking with liquid. IF that doesn't work could consider BID PPI She will look for other assoc (certain foods, after specific meds) and let me know if she notices any patterns Gastric ulcer 04/24/2021 Overview (04/24/2021): Added automatically from request for surgery [id number] Assessment & Plan (02/01/2024 6:15 PM SENIOR PASTOR): Last EGD 05/2022 showed resolution of chronic gastric ulcer. - Home omeprazole -> pantoprazole 40mg PO daily per formulary- pt requesting iv Assessment & Plan (06/26/2023 8:23 AM CDT): She did not get follow up EGD a; we discussed risks in the past Counseled to avoid NSAIDs Continue PPI but decrease to daily as symptoms are improved. Assessment & Plan (06/02/2022 2:58 PM SENIOR PASTOR): She did not get follow up EGD and declines to schedule something at this point although we discussed risks Counseled to avoid NSAIDs Continue PPI Assessment & Plan (12/03/2021 1:53 PM CDT): Not completely healed on most recent EGD Now on BID PPI x 3 weeks with no real change in nausea Encouraged to schedule repeat EGD later this month which she will consider We realized today she is taking 1000mg of aspirin most days which is certainly a risk factor Assessment & Plan (10/01/2021 4:09 PM CDT): Will need repeat EGD in 3 months to confirm healing Hiatal hernia 04/24/2021 Overview (04/24/2021): Added automatically from request for surgery [id number] Iron deficiency anemia 04/13/2021 Assessment & Plan (12/03/2021 1:40 PM CDT): EGD with gastric ulcer. C-scope normal 2019 On iron supplements - discussed that these could contribute to nausea Assessment & Plan (04/22/2021 12:06 PM SENIOR PASTOR): Suspect GI losses Will repeat EGD given h/o gastric ulcer and her upper GI symptoms. Discussed that repeat colonoscopy may be warranted as well but she would like to avoid this if at all possible. May need VCE as well. 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 60lb reported weight loss over past 3 years 2/2 decreased appetite. Poor food intake but supplementing with Boost 4-6x/day. Admitted for G-tube placement per outpatient Pulmonology team. -RD following -S/p PEG tube placement and dilation of gastric stenosis at the pylorus by GI on 01/21 -ORTHODONTIST ASSISTANT 01/23 on [facility] Soft, thin liquid diet - cw TF switched from continuous to bolus on 01/31 afternoon - monitor for refeeding syndrome- Electrolytes stable - thiamine IV daily -diarrhea since 01/30, sw loperamide prn - improved - Assessment & Plan (12/01/2023 10:49 AM CDT): Continue mirtazapine, discussed dronabinol vs trying a tiny amount of OTC THC abut she is skeptical Continue protein shakes and small, frequent meals Assessment & Plan (08/31/2023 9:02 PM CDT): Weight overall stable. Continue mirtazapine and working on protein intake We talked about G tube and how it might or might not fit in with her overall goals Assessment & Plan (06/22/2023 11:22 AM CDT): Gained 4lbs since last visit. On mirtazepine 15 nightly which she believes is helping her appetite. Would consider medical cannabis in future if success with mirtazapine is limited Following with endocrine for hyperthyroidism Unable to tolerate supplement shakes. Not interested in seeing outpt production control pegboard clerk Assessment & Plan (02/09/2023 8:39 PM SENIOR PASTOR): She has not lost more weight since mirtazapine was started Will increase to 15mg nightly since tolerating well and EKG stable. Will need repeat EKG next month, order placed and she is aware Would consider medical cannabis in future if success with mirtazapine is limited TSH was low in September and she is now on methimazole, encouraged to follow up to update TFTs to ensure normalized Saw production control pegboard clerk in the hospital. Eating her shakes and trying to increase protein and calories. Not interested in seeing outpt production control pegboard clerk Assessment & Plan (01/08/2023 10:07 AM CDT): BMI 15.6. Discussions ongoing regarding placement of PEG for nutrition given dysphagia, deconditioning. - Meets Nichols Criteria for Severe Malnutrition as evident of unintentional weight loss, muscle and fat loss. -Weight increased x 3 pounds (37.8kg). - High Calorie/High Protein Diet - Folic Acid/MVI/Thiamine - Remeron - Calorie Count - Per RD, patient does not want to pursue PEG tube placement and would rather work on increasing PO intakes. Assessment & Plan (12/22/2022 11:35 AM CDT): Weight has stabilized in the last month Seeing a production control pegboard clerk Declines appetite stimulating med at this point Assessment & Plan (06/02/2022 3:10 PM SENIOR PASTOR): Trying mirtazapine as above Offered travel freight and passenger agent referral Continue meal replacement and strategized protein intake today Assessment & Plan (12/03/2021 4:27 PM CDT): Consider TCA as above Declines travel freight and passenger agent referral Assessment & Plan (05/30/2020 1:55 PM SENIOR PASTOR): She has been gaining weight and overall doing better from this regard. CTM Assessment & Plan (12/01/2019 10:24 AM CDT): Improving although she pretty much has to force herself to eat Consider mirtazepine Assessment & Plan (04/22/2019 2:13 PM SENIOR PASTOR): Weight has been stable since discharge. Will keep a close eye on this. She will keep eating multiple, small calorically dense meals daily and supplementing as she is able. If she loses more weight will refer to outpatient production control pegboard clerk- she will closely monitor Assessment & Plan (04/12/2019 10:05 AM SENIOR PASTOR): Seen by nutrition - meets criteria for severe malnutrition Cont supplements and encouraging po intake Multivitamin Zinc supplement added Assessment & Plan (04/11/2019 8:49 AM SENIOR PASTOR): Seen by nutrition - meets criteria for severe malnutrition Cont supplements and encouraging po intake Multivitamin Zinc supplement added Assessment & Plan (04/08/2019 7:22 AM SENIOR PASTOR): Seen by nutrition - meets criteria for severe malnutrition Cont supplements and encouraging po intake Multivitamin Zinc level pending Assessment & Plan (04/10/2019 11:30 AM SENIOR PASTOR): Meets criteria for severe malnutrition with recent unintentional weight loss and poor PO intake in the setting of her ongoing mycobacterial infection. - RD following. - Continue supplements. - Encourage PO intake. - Started multivitamin. - Zinc level was low. Started on supplementation. Assessment & Plan (04/07/2019 8:39 AM SENIOR PASTOR): Seen by nutrition - meets criteria for severe malnutrition Cont supplements and encouraging po intake Add multivitamin Check zinc levels per nutrition recommendations Physical debility 04/06/2019 Assessment & Plan (02/01/2024 6:21 PM SENIOR PASTOR): Able to complete some ADLs but generally homebound due to progressing ANGULO, weakness, and fatigue. Receiving 4 hours of assistance at home weekly but feels like she could benefit from more assistance. Has active HH referral but reportedly declined by [facility] home health. Wants to try establishing with external HH. - Discuss setting up HH with CM - PT/OT- rehab -dc to [facility] once tolerates bolus feeds - fw PMR note, needed for [facility] Assessment & Plan (04/10/2019 11:30 AM SENIOR PASTOR): In setting of chronic infection, poor appetite, and weight loss. - PT evaluated. Recommended home with no needs. Assessment & Plan (04/06/2019 7:51 AM SENIOR PASTOR): Due to weight loss and poor nutritional status. 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 Per most recent outpatient Pulmonology note, regimen discontinued on 06/23/2022 due to potential significant interactions with other medications. No regimen currently. Assessment & Plan (12/03/2021 4:28 PM CDT): On antibiotics long-term per Dr Harris for atypical mycobacterial infection Assessment & Plan (11/30/2020 11:21 AM CDT): On antibiotics long-term per Dr Harris for atypical mycobacterial infection and symptoms and bacterial load to seem to be decreasing. CTM Assessment & Plan (05/30/2020 1:51 PM SENIOR PASTOR): On antibiotics long-term per Dr Harris for atypical mycobacterial infection Plan is for repeat bronch when deemed safe Assessment & Plan (04/22/2019 2:08 PM SENIOR PASTOR): On antibiotics long-term per Dr Harris for atypical mycobacterial infection Assessment & Plan (04/12/2019 10:54 AM SENIOR PASTOR): Patient with atypical mycobacterial lung infection. Initially with left lung consolidation on CT chest in 10/2018 that progressed (relatively rapidly for an atypical mycobacterial infection) on follow-up imaging. S/p bronchoscopy with biopsy in 01/2019 with cultures growing mycobacterium-chimera intercellulare and path showing non-caseating granulomas. Patient was started on azithromycin, ethambutol, and rifampin as an outpatient but did not tolerate well due to side effects (though unclear if symptoms were true side effects or related to the infection itself). Admitted to the hospital for initiation of amikacin for treatment of her atypical mycobacterial infection. - S/p RUE PICC placement on 04/05/2019 for prolonged course of amikacin (tentative plan for 8-12 weeks). - Started amikacin 15 mg / kg three times weekly. Peak level after 2nd dose was subtherapeutic. - Increase amikacin dose to 25 mg / kg three times weekly. Recheck trough 30 minutes before and peak 8 hours after second dose at the increased dose (trough should be low and peak should be ~20), though current level of 14.3 acceptable given her age, discussed with Dr. Harris - Weekly audiogram while on Amikacin. Done twice on this admit (04/06 and 04/11) and no changed. Will fax standing outpatient order. - Pulmonary / Dr. Harris following while inpatient. - Re-initiated azithromycin at 250 mg daily and Ethambutol on this admit. Plan to start Rifampin outpatient - QTc OK on admission EKGs. Will need serial monitoring as outpatient. - Weekly BMPs while on amikacin as outpatient. 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 In addition, CT scan has worsened in fairly short period of time. The patient is having difficulty tolerating the oral regimen due to side effects. However, I suspect many of these side effects are due to the infection instead of medications. Amikacin increased to 1100 mg - second dose today -trough okay - peak a little low but given her age and size will not increase further due to concern for toxicity - if levels okay can be d/c'd tomorrow to complete 12 weeks of IV amikacin Audiology testing with some higher frequency loss (likely age related) but normal in lower frequencies - will continue to monitor while on amikacin - if possible, would repeat audiology testing today or tomorrow before discharge - hearing stable Will need to monitor creatinine weekly - creatinine stable QTC 430 milliseconds Ethambutol restarted, if tolerating this regimen for a couple of weeks - will try adding back rifampin as an outpatient Continue acapella for airway clearance TID given the development of cystic bronchiectasis on most recent CT scan Monitor QTc on ECG Patient has appt to see me on 04/20/2019 and can keep those appointments. 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 In addition, CT scan has worsened in fairly short period of time. The patient is having difficulty tolerating the oral regimen due to side effects. However, I suspect many of these side effects are due to the infection instead of medications. Amikacin increased to 1100 mg - second dose today -check trough with second dose and random level 8 hours after 2nd dose with goal of > 20 - amikacin - do not draw from line - if levels okay can be d/c'd tomorrow to complete 12 weeks of IV amikacin Audiology testing with some higher frequency loss (likely age related) but normal in lower frequencies - will continue to monitor while on amikacin - if possible, would repeat audiology testing today or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 Date Diagnosed Date Resolved Date Malnutrition 01/20/2024 02/23/2024 Assessment & Plan (01/25/2024 3:28 PM CDT): Patient with chronic malnutrition with continued weight loss. Admitted for G- tube placement. She follows with outpatient GI, Dr. Coats. Has a history of pyloric stenosis. 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 However, her weight loss seems to be multifactorial in the setting of difficulty tolerating smells/textures of foods. - S/p G-tube placement with GI - Nutrition is consulted and following VALERIE (mycobacterium avium-intracellulare) 04/03/2023 04/03/2023 Hypotension 04/09/2019 02/23/2024 Assessment & Plan (04/12/2019 10:55 AM SENIOR PASTOR): Blood pressures running low generally ~80-90/50. No evidence of shock. She is mentating well and completely asymptomatic. Lactate normal. Assessment & Plan (04/09/2019 11:09 AM SENIOR PASTOR): Blood pressures running low generally ~80-90/50. No evidence of shock. She is mentating well and completely asymptomatic. Lactate normal. Severe malnutrition 04/07/2019 12/01/19 21 Overview (11/30/2020): Last Assessment & Plan: Improving although she pretty much has to force herself to eat Consider mirtazepine Positive FIT (fecal immunochemical test) 01/27/2019 04/22/2019 Overview (01/27/2019): Added automatically from request for surgery [id number] Fecal occult blood test positive 12/06/2018 11/30/2020 Overview (12/06/2018): Added automatically from request for surgery [id number] Assessment & Plan (04/22/2019 2:00 PM SENIOR PASTOR): Noted Mar 2018. She was referred for c-scope but that has been deferred. She did have TA in 2012 so I would like her to update her c-scope in the next year but it doesn't make sense to do it right now Diarrhea 06/17/2018 11/26/2018 Assessment & Plan (06/17/2018 12:43 PM CDT): CT A/p reassuring earlier this year This precedes adding sertraline although this could be a culprit Symptoms do seem to correlate with starting Multaq which can cause nausea, diarrhea, etc. I will be interested to see what happens to her symptoms once she stops Multaq. Encouraged her to discuss side effects with her circuit clerk and consider a trial off. Will check stool studies + consider colonoscopy as next steps Occult blood positive stool 04/12/2018 04/22/2019 Abdominal pain 04/06/2018 11/26/2018 Assessment & Plan (04/06/2018 9:44 PM SENIOR PASTOR): Unclear etiology. She describes feeling constipated but only passing loose, small stools. Will check abd X-ray to eval for obstruction. Other considerations inc cystitis, diverticulitis (although no mention of diverticula on her last scope), multaq side effect. Will check labs as below. She will try Miralax instead of stool softener. She plans to get off Multaq in the near future and I asked her to discuss her symptoms with her circuit clerk who she sees next week Consider CT if symptoms don't improve or certainly if they worsen. Opacities of both lungs pres ent on chest x-ray 08/17/2017 03/19/2018 Jaw pain 08/13/2017 11/26/2018 Muscle cramps 08/13/2017 11/26/2018 Neck pain 08/13/2017 11/26/2018 Shortness of breath 08/13/2017 06/18/19 19 Hematuria 04/24/2017 11/26/2018 Microscopic hematuria 04/01/20172018 Overweight 04/01/2017 04/05/2019 Upper back pain 12/29/2016 04/05/2019 Abnormal finding on thyroid function test 06/16/2016 06/17/2018 Generalized anxiety disorder 06/16/2016 06/17/2018 Skin tag 10/29/2015 06/17/2018 Multiple benign melanocytic nevi 10/29/2015 11/26/2018 Seborrheic keratoses 10/29/2015 019 Depression 05/22/2015 03/18/2018 Abnormal thyroid blood test 02/13/2014 06/17/2018 Gastroesophageal reflux disease 01/18/2014 11/26/2018 Overview (07/04/2016): GERD Depression 04/29/2013 06/17/2018 Overview (07/03/2016): Depression Assessment & Plan (03/18/2018 11:04 AM SENIOR PASTOR): She is feeling down at the moment- she is off Lexapro but her low mood predates stopping this med Will hold Lexapro until she follows up with her circuit clerk next week. If amiodarone is DCed we can easily restart at that time. Continue bupropion in the meantime. I encouraged her to resume therapy sessions as well. Will re-address when acute stressors have improved. Benign colonic polyp 02/17/2012 019 Encounters Date Type Department Care Team Description 08/17/2024 4:00 PM CDT Telemedicine [facility] [address] [place] [phone] Dav Luz, PhD Adjustment reaction with anxiety and depression (Primary Dx) 08/10/2024 4:00 PM CDT Telemedicine [facility] [address] [place] [phone] Dav Luz, PhD Adjustment reaction with anxiety and depression (Primary Dx) 08/10/2024 Telephone [facility] [address] [facility] [address] [place] [address] Farrah Trejo, icer hand Request 08/05/2024 Telephone [facility] [address] [facility] [place] [phone] Dav Luz, PhD 08/03/2024 4:00 PM CDT Telemedicine [facility] [facility] [place] [address] Dav Luz, PhD Adjustment reaction with anxiety and depression (Primary Dx) 08/03/2024 Telephone [facility] [address] [facility] 8th [place] [address] [place] [address] Brenda Harris MD 08/03/2024 Telephone [facility] [address] [facility] 8th [place] [address] [place] [address] Josey Morgan, FILIPE 08/02/2024 Telephone [facility] [address] [facility] 8th [place] [address] [place] [address] Josey Morgan, FILIPE 07/28/2024 11:00 AM CDT Telemedicine [facility] [address] [facility] [place] [phone] Dav Luz, PhD Adjustment reaction with anxiety and depression (Primary Dx) 07/28/2024 Telephone [facility] [address] [facility] 8th [place] [address] [place] [address] Becka Tracey, FILIPE 07/28/2024 Telephone [facility] [address] [facility] [address], [address] [place] [phone] Sylvie Andrade, RN Gastrostomy 07/20/2024 Telephone [facility] [address] [place] [address] [address] [place] [phone] Iraida Magallon 07/20/[address] [place] [address] Katerine Pinzon, acoustic intelligence specialist 07/14/2024 1:30 PM CDT Telemedicine [facility] [address] [facility] 8th Floor [address] [place] [phone] Lydia Mena, ALEJANDRO Paroxysmal A-fib (HCC) (Primary Dx) 07/13/2024 4:00 PM CDT Telemedicine [facility] [address] [place] [phone] Dav Luz, PhD Adjustment reaction with anxiety and depression (Primary Dx) 07/13/2024 11:20 AM CDT Telemedicine [facility] [address] [place] [address] [address]th [address] [place] [phone] Jerrica Stacy MD Hypotension, unspecified hypotension type (Primary Dx); IPF (idiopathic pulmonary fibrosis) with acute on chronic respiratory failure, atypical mycobacterial infection (HCC); ILD (interstitial lung disease) ([facility]); Nonintractable headache, unspecified chronicity pattern, unspecified headache type; Malnutrition compromising bodily function; Severe malnutrition; S/P percutaneous endoscopic gastrostomy (PEG) tube placement (HCC) 07/07/2024 10:00 AM CDT Telemedicine [facility] [address] [place] [phone] Dav Luz, PhD Adjustment reaction with anxiety and depression (Primary Dx) 06/30/2024 11:00 AM CDT Telemedicine [facility] [address] [place] [phone] Dav Luz, PhD Adjustment reaction with anxiety and depression (Primary Dx) 06/28/2024 Orders Only [facility] [address] [place] [address] 8th [address] [place] [phone] Brenda Harris MD ILD (interstitial lung disease) ([facility]) (Primary Dx); High risk medication use 06/23/2024 10:00 AM CDT Telemedicine [facility] [address] [place] [phone] Dav Luz, PhD Adjustment reaction with anxiety and depression (Primary Dx) 06/16/2024 Telephone [facility] [address] [facility] [address] [place] [address] Karie Parker pa for pirfenidone (Per [facility] bin [id number] pcn MEDDADV id [id number] auth is approved for pirfenidone and good until 06/16/25 pa jordan [id number]) 06/16/2024 Orders Only [facility] [address] [place] [address] Medicine 8th [place] [address] [place] [address] Brenda Harris MD IPF (idiopathic pulmonary fibrosis) (HCC) (Primary Dx) 06/15/2024 4:00 PM CDT Telemedicine [facility] [address] [place] [phone] Dav Luz, PhD Adjustment reaction with anxiety and depression (Primary Dx) 06/02/2024 1:00 PM SENIOR PASTOR Telemedicine [facility] [address] [place] [phone] Dav Luz, PhD Adjustment reaction with anxiety and depression (Primary Dx); ILD (interstitial lung disease) (HCC) from Last 3 Months Immunizations Immunization Administration Dates Next Due COVID-19 mRNA (Zoobe) 0.3 m L (30 mcg) vaccine (12 years and up) 01/20/2023 Influenza, Quad, Adjuvantate d, Intramuscular 12/07/2019 Influenza, Quadrivalent, Hig h Dose, Preservative Free, Intrr 01/08/2023,12/11/2021,12/07/2020 Influenza, Quadrivalent, Spl it, Intramuscular 11/28/2010 Influenza, Split 11/28/2010 Influenza, Trivalent, High D ose, Split, Preservative Free, Intramuscular 12/10/2018,12/13/2017,12/13/2017,12/22,12/23/2015,12/28/2013 Influenza, Trivalent, IM (MDV) 12/23/2012,2011 Influenza, Trivalent, Preser vative Free, Intramuscular 2024,12/24/2015 Influenza, Unspecified 01/20/2023,2019,12/10/2018,12/13,12/22/2016,12/23/2015,12/28/2013 Pfizer SARS-CoV-2 Monovalent Vaccination (12+ Yrs) PURPLE 06/23/2020,05/31/2020 Pneumococcal Conjugate PCV 13 05/26/2015, 015 Pneumococcal Conjugate Pcv20 12/11/2021 Pneumococcal Polysaccharide PPV23 12/07/2019,,03/30/2011 RSV Vaccine, Pref, Recombina nt, Subunit, Adjuvanted, PF, IM (Arexvy) 01/20/2023 Tdap 04/22/2015,04/08/2011 ZOSTER LIVE 03/30/2015,11/28/2013 ZOSTER Recombinant 02/25/2019,12/26/2018, 019 Surgical History Surgery Date Site/Laterality Comments EPIDURAL INJECTION LUMBOSACRAL 11/23/2012 N/A BRONCHOSCOPY 02/10/19, 08/09/19 COLONOSCOPY PERIPHERALLY INSERTED CENTRA L CATHETER INSERTION TUBAL LIGATION UPPER GASTROINTESTINAL ENDOSCOPY Medical History Medical History Date Comments Hypertension Hx Other Medical 1971 left neck mixe d tumor' resection Otalgia of left ear Earache, lef t - (Added by TW Conv) Interstitial lung disease (HCC) Anxiety and depression Paroxysmal A-fib (HCC) Osteoporosis Migraines HL (hearing loss) Fecal occult blood test positive 12/06/2018 Added automatically from request for surgery [id number] Myocardial infarction (HCC) Hyperlipidemia Family History Medical History Relation Name Comments Coronary artery disease Brother 2 Tera nary artery disease; Hyperlipidemia Brother 3 Hyperlipidemi a; Other Brother 4 Alive and well; Alzheimer's disease Brother 5 Alzheime r's disease; Alcohol abuse Daughter Alcoholism; Alzheimer's disease Father Alzheime r's Disease; Coronary artery disease Father Tera nary artery disease; Cause of : Coronary artery disease Coronary artery disease Mother Tera nary artery disease; Cause of : Coronary artery disease Heart failure Mother pacemaker Pancreatic cancer Mother Cancer, pa ncreatic; Other Sister 2 Alive and well; Relation Name Status Comments Brother 1 Alive Brother 2 Brother 3 Brother 4 Brother 5 Daughter Father (Age 87) Mother (Age 86) Sister 1 Alive Sister 2 Social History Tobacco Use Types Packs/Day Years Used Date Smoking Tobacco: Former Smokeless Tobacco: Never Tobacco Cessation:Counseling Given: Not Answered Comments:Smoking History Packs/day: 2.5 Packs Alcohol Use Standard Drinks/Week Comments Not Currently 0 (1 standard drink = 0.6 oz pur e alcohol) OASIS D0700: Social Isolation Answer Da te Recorded Frequency of experiencing loneliness or isolatio n Never 03/25/2024 OASIS A1250: Transportation Answer Date Recorded Lack of Transportation (Medical) No 03/25/2024 Lack of Transportation (Non-Medical) No 03/25/2024 Patient Unable or Declines to Respond No 03/25/2024 OASIS B1300: Health Literacy Answer Nahum e Recorded Frequency of needing help to read materials from doctor or pharmacy Never 03/25/2024 AUDIT-C Answer Date Recorded Q1: How often do you have a drink containing alcohol? Never 01/22/2024 Q2: How many drinks containi ng alcohol do you have on a typical day when you are drinking? Patient does not drink Q3: How often do you have si x or more drinks on one occasion? Never 01/22/2024 PHQ-2 Answer Date Recorded PHQ-2 Total Score 1 06/07/2024 PHQ-9 Answer Date Recorded PHQ-9 Total Score 6 06/07/2024 Personal Safety Answer Date Recorded Have you ever been in or are you currently in a harmful physical or emotional relationship or is someone making you feel afraid or unsafe? Denies 02/06/2024 Comments No Sex and Gender Information Value Date Recorded Sex Assigned at Not on file Legal 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:00 AM SENIOR PASTOR Gender Identity Not on file Sexual Orientation Not on file Obstetrics History Last Filed Vital Signs Vital Sign Reading Time Taken Comments Blood Pressure 93/62 03/25/2024 2:30 PM SENIOR PASTOR Pulse 81 03/25/2024 2:30 PM SENIOR PASTOR Temperature 36.9 C (98.5 F) 03/25/2024 2:30 PM SENIOR PASTOR Respiratory Rate 18 03/25/2024 2:30 PM SENIOR PASTOR Oxygen Saturation 99% 03/25/2024 2:30 PM SENIOR PASTOR Inhaled Oxygen Concentration - - Weight 34 kg (75 lb) 02/06/2024 11:31 AM SENIOR PASTOR Height 152.4 cm (5') 02/06/2024 11:31 AM SENIOR PASTOR Body Mass Index 14.65 02/06/2024 11:31 AM SENIOR PASTOR Plan of Treatment Scheduled Procedures Name Priority Associated Diagnoses Date/Ti me ESOPHAGOGASTRODUODENOSCOPY Iron deficiency anemia, unspecified iron deficiency anemia type Non-intractable vomiting with nausea, unspecified vomiting type Health Maintenance Due Date Last Done Comments Hepatitis B Screening 1968 Osteoporosis Screening-Bone Density Scan 11/30/2022 11/30/2020, 11/30/2020, 11/30/2020, Additional history exists Covid-19 Vaccine (2023- 5 season) 2023 01/20/2023, 12/19/2021, 07/03/2021, Additional history exists Well Visit 65+ 12/23/2023 12/22/2022, 11/29, 12/03/2021, Additional history exists Fall Risk Assessment 02/01/2025 02/02/2024, 12/22/2022, 12/03/2021 DTaP/Tdap/Td Vaccine (3 - Td or Tdap) 04/22/2025 04/22/2015, 04/08/2011 Depression Screening 06/02/2025 06/02/2024, 06/02/2024, 05/07/2023, Additional history exists Hepatitis C Screening Completed 11/18/2013 Zoster Vaccine Completed 02/25/2019, 11/29, 12/10/2018, Additional history exists Colon Cancer Screening-CT Colonography Discontinued 01/13/2020, 08/18/2012 Colon Cancer Screening-Colonoscopy Discontinued 01/13/2020, 08/18/2012 Colon Cancer Screening-DNA Stool Discontinued 01/13/20 20, 08/18/2012 Colon Cancer Screening-FIT Discontinued 01/13/2020, Colon Cancer Screening-FOBT Discontinued 01/13/2020, 0 08/18/2012 Colon Cancer Screening-Sigmoidoscopy Discontinued 01/13/2020, 08/18/2012 Colorectal Cancer Screening Discontinued Pneumococcal vaccine 65+ Completed 022, 12/07/2019, 05/26/2015, Additional history exists Breast Cancer Screening-Mammogram Discontinued 07/28/2022, 07/01/2021, 06/07/2020, Additional history exists Influenza Vaccine Completed 2024, , 01/08/2023, Additional history exists Procedures Procedure Name Priority Date/Time Associated Diagnosis Comments SCREENING MAMMOGRAM BILATERAL W OBIE Schedule Routine, Read Routine (OP Routine) 07/28/2022 2:07 PM CDT Screening mammogram, encounter for DEXA AXIAL SKELETON BONE DENSITY 1 OR MORE SITES Schedule Routine, Read Routine (OP Routine) 11/30/2020 10:53 AM CDT Other osteoporosis without current pathological fracture COLONOSCOPY 01/13/2020 1:02 PM CDT SERUM HEPATITIS C AB Routine 11/18/2013 7:00 AM CDT from Last 3 Months or Most Recently Relevant to Health Maintenance Results * Screening Mammogram Bilateral W [place] (07/28/2022 2:07 PM CDT) Anatomical Region Laterality Modality Breast Bilateral Mammography Narrative 07/30/2022 2:27 PM CDT Mammogram Technique: Bilateral Digital Breast Tomosynthesis, Bilateral C-view 2D Screening mammogram. Views obtained: bilateral craniocaudal and bilateral mediolateral oblique. Computer Aided Detection was performed. Mammogram Findings: The present examination has been compared to prior imaging studies performed at [facility] on 07/01/2018, 06/07/2020 and 07/01/2021. The breasts are heterogeneously dense, which may obscure small masses. There is no suspicious abnormality in either breast. Impression: There is no mammographic evidence of malignancy. Annual screening mammography is recommended. OVERALL FINAL ASSESSMENT: BI-RADS CATEGORY 1: Negative. Procedure Note Kirstie Peña MD - 07/30/2022 Mammogram Technique: Bilateral Digital Breast Tomosynthesis, Bilateral C-view 2D Screening mammogram. Views obtained: bilateral craniocaudal and bilateral mediolateral oblique. Computer Aided Detection was performed. Mammogram Findings: The present examination has been compared to prior imaging studies performed at [facility] at [facility] on 07/01/2018, 06/07/2020 and 07/01/2021. The breasts are heterogeneously dense, which may obscure small masses. There is no suspicious abnormality in either breast. Impression: There is no mammographic evidence of malignancy. Annual screening mammography is recommended. OVERALL FINAL ASSESSMENT: BI-RADS CATEGORY 1: Negative. us Self Screening Mammogram IMG MAMMO PROCEDURES Fi nal Result * Dexa Axial Skeleton Bone Density 1 or 2 Site (11/30/2020 10:53 AM CDT) Anatomical Region Laterality Modality Body N/A Digital Radiogra phy 11/30/2020 3:40 PM CDT Impressions 11/30/2020 4:21 PM CDT 1. The bone mineral density of the lumbar spine is markedly decreased. There has been a statistically significant increase in bone mineral density since the baseline examination of 11/25/2013. Comparison with prior studies performed at this facility before November 2018 is less accurate because of a change in bone densitometry scanners. 2. The bone mineral density of the left femoral neck is moderately decreased. There has been a statistically significant increase in bone mineral density since the baseline examination of 11/25/2013. Comparison with prior studies performed at this facility before November 2018 is less accurate because of a change in bone densitometry scanners. 3. The bone mineral density of the left total hip is moderately decreased. There has been a statistically significant increase in bone mineral density since the baseline examination of 11/25/2013. Comparison with prior studies performed at this facility before November 2018 is less accurate because of a change in bone densitometry scanners. 4. Overall, the above findings are diagnostic of osteoporosis by WHO criteria. 5. Based on the FRAX fracture risk model, the 10-year probability for major osteoporotic fracture is 19% and that for hip fracture is 8.0%; however, if the patient is on Prolia, these values will not be accurate and FRAX is not intended for patients being treated for osteoporosis. This 10-year fracture risk estimate was calculated using the risk factors noted in the history above, along with the femoral neck bone density. FRAX is intended to help guide treatment decisions in men over age 50 and postmenopausal women with low bone mass (osteopenia). The National Osteoporosis Foundation (NOF) recommends that FDA-approved medical therapies be considered in postmenopausal women and men age 50 years and older with osteoporosis and those with low bone mass whose 10-year fracture probability by FRAX is >= 20% for major osteoporotic fracture or >= 3% for hip fracture. However, all treatment decisions require clinical judgment and consideration of individual patient factors, including patient preferences, comorbidities, previous drug use, risk factors not captured in the FRAX model (e.g., frailty, falls, vitamin D deficiency, increased bone turnover, interval significant decline in bone density) and possible under- or overestimation of fracture risk by FRAX. General comments regarding interpretation of bone density measurements: A) In children, premenopausal woman and males under age 50 not at increased risk for fractures only Z-scores, not T-scores are used to indicate risk. A Z-score above -2.0 is defined as within the expected range for age and Z-score at or less than -2.0 is below the expected range for age. A Z-score below the expected range for age in a patient with recent fractures and/or chronic corticosteroid treatment is consistent with a diagnosis of osteoporosis. B) In post menopausal women and males over 50, comparison of the measured bone mineral density with the average value in young normal subjects (the T-score) has been found to be useful in assessing fracture risk. Fracture risk approximately doubles for each 1.0 standard deviation (SD) in individual's hip or spine bone mineral density is below the average value of young normal subjects. The World Health Organization (WHO) has defined T-scores of -1.0 to -2.5 as diagnostic of low bone mass (OSTEOPENIA), and T-scores of -2.5 or lower to be diagnostic of OSTEOPOROSIS, based on the site of lowest bone density. Note that there will be a change in reporting format and reference databases as patients move from the younger population (group A) to the older population (group B) The National Osteoporosis Foundation (www.nof.org) recommends adequate intake of calcium and vitamin D and regular weight-bearing exercise in all patients. They recommend pharmacologic treatment in postmenopausal women and men age 50 and older presenting with any of the followin) Osteoporosis, after appropriate evaluation to exclude secondary causes. 2) A hip or vertebral (clinical or radiographic) fracture, regardless of the bone density. 3) Low bone mass (Osteopenia) and one or more of: other prior fractures, secondary causes associated with high risk of fracture (such as glucocorticoid use or total immobilization), or computed high risk of fracture (10-yr probability of hip fracture >= 3% or a 10-yr probability of any major osteoporosis-related fracture >= 20% based on the [place].-adapted WHO algorithm), available at http://www.shef.ac.uk/FRAX). Dictated by: Taylor Motta M.D. The radiology attending physician has personally reviewed this study, and had reviewed and/or edited this written report and agrees with it. Electronically signed by: Luis Armando Escudero M.D., Ph.D. Narrative 11/30/2020 4:21 PM CDT BONE DENSITOMETRY OF THE SPINE AND HIP DATE OF STUDY: 11/30/2020 HISTORY: 70-year-old postmenopausal woman with self-reported loss of height and osteoporosis. She is being treated with calcium pills and vitamin D. Although patient denied taking osteoporotic medication on the questionnaire, per medical chart, patient is currently being treated with Prolia. Evaluate bone mineral density. Additional risk factors for fracture: None. FINDINGS (SPINE): The bone mineral density of L1-L4 was assessed by dual-energy x-ray absorptiometry. The average bone mineral density within this region is 0.659 gm/sq-cm. This is 1.3 standard deviations below the mean of the average bone mineral density for age- and gender-matched subjects (the Z-score). It is 3.5 standard deviations below the mean peak bone mineral density in young adults (the T-score). FINDINGS (FEMORAL NECK): The bone mineral density of the left femoral neck was assessed by dual-energy x-ray absorptiometry. The average bone mineral density within the femoral neck region is 0.480 gm/sq-cm. This is 1.4 standard deviations below the mean of the average bone mineral density for age- and gender-matched subjects (the Z-score). It is 3.3 standard deviations below the mean peak bone mineral density in young adults (the T-score). FINDINGS (TOTAL HIP): The bone mineral density of the left hip was assessed by dual-energy x-ray absorptiometry. The average bone mineral density within the total hip region is 0.548 gm/sq-cm. This is 1.6 standard deviations below the mean of the average bone mineral density for age- and gender-matched subjects (the Z-score). It is 3.2 standard deviations below the mean peak bone mineral density in young adults (the T-score). SUMMARY OF CURRENT RESULTS: Region BMD T-score Z-score AP Spine (L1-L4) 0.659 -3.5 -1.3 Femoral Neck (Left) 0.480 -3.3 -1.4 Total Hip (Left) 0.548 -3.2 -1.6 COMPARISON WITH PREVIOUS RESULTS Region Age BMD T-score BMD Change BMD Change Exam Date g/cm2 vs Baseline vs Previous AP Spine (L1-L4) 11/30/2020 70 0.659 -3.5 27.5%# -3.2%# 03/17/2018 68 0.681 -3.3 31.7%# 11.4%# 02/05/2017 66 0.612 -4.0 18.3%* 4.6%* 02/01/2016 65 0.585 -4.2 13.1%* 5.3%* 02/08/2015 64 0.555 -4.5 7.4%* 7.4%* 11/25/2013 63 0.517 -4.8 Femoral Neck(Left) 11/30/2020 70 0.480 -3.3 33.6%# 2.8% 03/17/2018 68 0.467 -3.4 30.0%# 15.1%# 02/05/2017 66 0.405 -4.0 13.0%* 2.6% 02/01/2016 65 0.395 -4.1 10.0%* 4.6% 02/08/2015 64 0.378 -4.2 5.2% 5.2% 11/25/2013 63 0.359 -4.4 Total Hip(Left) 11/30/2020 70 0.548 -3.2 12.2%# 7.6%* 03/17/2018 68 0.509 -3.5 4.3%# -1.5%# 02/05/2017 66 0.517 -3.5 5.9%* 2.0% 02/01/2016 65 0.507 -3.6 3.8% 18.9%* 02/08/2015 64 0.426 -4.2 -12.8%* -12.8%* 11/25/2013 63 0.488 -3.7 *Denotes significance at 95% confidence level # Denotes dissimilar scan types or analysis methods Procedure Note Luis Armando Escudero MD - 11/30/2020 BONE DENSITOMETRY OF THE SPINE AND HIP DATE OF STUDY: 11/30/2020 HISTORY: 70-year-old postmenopausal woman with self-reported loss of height and osteoporosis. She is being treated with calcium pills and vitamin D. Although patient denied taking osteoporotic medication on the questionnaire, per medical chart, patient is currently being treated with Prolia. Evaluate bone mineral density. Additional risk factors for fracture: None. FINDINGS (SPINE): The bone mineral density of L1-L4 was assessed by dual-energy x-ray absorptiometry. The average bone mineral density within this region is 0.659 gm/sq-cm. This is 1.3 standard deviations below the mean of the average bone mineral density for age- and gender-matched subjects (the Z-score). It is 3.5 standard deviations below the mean peak bone mineral density in young adults (the T-score). FINDINGS (FEMORAL NECK): The bone mineral density of the left femoral neck was assessed by dual-energy x-ray absorptiometry. The average bone mineral density within the femoral neck region is 0.480 gm/sq-cm. This is 1.4 standard deviations below the mean of the average bone mineral density for age- and gender-matched subjects (the Z-score). It is 3.3 standard deviations below the mean peak bone mineral density in young adults (the T-score). FINDINGS (TOTAL HIP): The bone mineral density of the left hip was assessed by dual-energy x-ray absorptiometry. The average bone mineral density within the total hip region is 0.548 gm/sq-cm. This is 1.6 standard deviations below the mean of the average bone mineral density for age- and gender-matched subjects (the Z-score). It is 3.2 standard deviations below the mean peak bone mineral density in young adults (the T-score). SUMMARY OF CURRENT RESULTS: Region BMD T-score Z-score AP Spine (L1-L4) 0.659 -3.5 -1.3 Femoral Neck (Left) 0.480 -3.3 -1.4 Total Hip (Left) 0.548 -3.2 -1.6 COMPARISON WITH PREVIOUS RESULTS Region Age BMD T-score BMD Change BMD Change Exam Date g/cm2 vs Baseline vs Previous AP Spine (L1-L4) 11/30/2020 70 0.659 -3.5 27.5%# -3.2%# 03/17/2018 68 0.681 -3.3 31.7%# 11.4%# 02/05/2017 66 0.612 -4.0 18.3%* 4.6%* 02/01/2016 65 0.585 -4.2 13.1%* 5.3%* 02/08/2015 64 0.555 -4.5 7.4%* 7.4%* 11/25/2013 63 0.517 -4.8 Femoral Neck(Left) 11/30/2020 70 0.480 -3.3 33.6%# 2.8% 03/17/2018 68 0.467 -3.4 30.0%# 15.1%# 02/05/2017 66 0.405 -4.0 13.0%* 2.6% 02/01/2016 65 0.395 -4.1 10.0%* 4.6% 02/08/2015 64 0.378 -4.2 5.2% 5.2% 11/25/2013 63 0.359 -4.4 Total Hip(Left) 11/30/2020 70 0.548 -3.2 12.2%# 7.6%* 03/17/2018 68 0.509 -3.5 4.3%# -1.5%# 02/05/2017 66 0.517 -3.5 5.9%* 2.0% 02/01/2016 65 0.507 -3.6 3.8% 18.9%* 02/08/2015 64 0.426 -4.2 -12.8%* -12.8%* 11/25/2013 63 0.488 -3.7 *Denotes significance at 95% confidence level # Denotes dissimilar scan types or analysis methods IMPRESSION: 1. The bone mineral density of the lumbar spine is markedly decreased. There has been a statistically significant increase in bone mineral density since the baseline examination of 11/25/2013. Comparison with prior studies performed at this facility before November 2018 is less accurate because of a change in bone densitometry scanners. 2. The bone mineral density of the left femoral neck is moderately decreased. There has been a statistically significant increase in bone mineral density since the baseline examination of 11/25/2013. Comparison with prior studies performed at this facility before November 2018 is less accurate because of a change in bone densitometry scanners. 3. The bone mineral density of the left total hip is moderately decreased. There has been a statistically significant increase in bone mineral density since the baseline examination of 11/25/2013. Comparison with prior studies performed at this facility before November 2018 is less accurate because of a change in bone densitometry scanners. 4. Overall, the above findings are diagnostic of osteoporosis by WHO criteria. 5. Based on the FRAX fracture risk model, the 10-year probability for major osteoporotic fracture is 19% and that for hip fracture is 8.0%; however, if the patient is on Prolia, these values will not be accurate and FRAX is not intended for patients being treated for osteoporosis. This 10-year fracture risk estimate was calculated using the risk factors noted in the history above, along with the femoral neck bone density. FRAX is intended to help guide treatment decisions in men over age 50 and postmenopausal women with low bone mass (osteopenia). The National Osteoporosis Foundation (NOF) recommends that FDA-approved medical therapies be considered in postmenopausal women and men age 50 years and older with osteoporosis and those with low bone mass whose 10-year fracture probability by FRAX is >= 20% for major osteoporotic fracture or >= 3% for hip fracture. However, all treatment decisions require clinical judgment and consideration of individual patient factors, including patient preferences, comorbidities, previous drug use, risk factors not captured in the FRAX model (e.g., frailty, falls, vitamin D deficiency, increased bone turnover, interval significant decline in bone density) and possible under- or overestimation of fracture risk by FRAX. General comments regarding interpretation of bone density measurements: A) In children, premenopausal woman and males under age 50 not at increased risk for fractures only Z-scores, not T-scores are used to indicate risk. A Z-score above -2.0 is defined as within the expected range for age and Z-score at or less than -2.0 is below the expected range for age. A Z-score below the expected range for age in a patient with recent fractures and/or chronic corticosteroid treatment is consistent with a diagnosis of osteoporosis. B) In post menopausal women and males over 50, comparison of the measured bone mineral density with the average value in young normal subjects (the T-score) has been found to be useful in assessing fracture risk. Fracture risk approximately doubles for each 1.0 standard deviation (SD) in individual's hip or spine bone mineral density is below the average value of young normal subjects. The World Health Organization (WHO) has defined T-scores of -1.0 to -2.5 as diagnostic of low bone mass (OSTEOPENIA), and T-scores of -2.5 or lower to be diagnostic of OSTEOPOROSIS, based on the site of lowest bone density. Note that there will be a change in reporting format and reference databases as patients move from the younger population (group A) to the older population (group B) The National Osteoporosis Foundation (www.nof.org) recommends adequate intake of calcium and vitamin D and regular weight-bearing exercise in all patients. They recommend pharmacologic treatment in postmenopausal women and men age 50 and older presenting with any of the followin) Osteoporosis, after appropriate evaluation to exclude secondary causes. 2) A hip or vertebral (clinical or radiographic) fracture, regardless of the bone density. 3) Low bone mass (Osteopenia) and one or more of: other prior fractures, secondary causes associated with high risk of fracture (such as glucocorticoid use or total immobilization), or computed high risk of fracture (10-yr probability of hip fracture >= 3% or a 10-yr probability of any major osteoporosis-related fracture >= 20% based on the [place].-adapted WHO algorithm), available at http://www.shef.ac.uk/FRAX). Dictated by: Taylor Motta M.D. The radiology attending physician has personally reviewed this study, and had reviewed and/or edited this written report and agrees with it. Electronically signed by: Luis Armando Escudero M.D., Ph.D. Sheryl Morgan MD IMG DXA PROCEDURES Final Result * COLONOSCOPY (01/13/2020 1:02 PM CDT) Anatomical Region Laterality Modality Other Narrative Procedure Note Ashli Coats MD - 01/13/2020 1:02 PM CDT [facility] Patient Name: Celi Collins Procedure Date: 01/13/2020 1:02 PM Date of : 1950 Admit Type: Outpatient Age: 69 Gender: Female Attending MD: Ashli Coats M.D. Room: [facility] ENDOSCOPY ROOM 9 Note Status: Finalized Procedure: Colonoscopy Indications: High risk colon cancer surveillance: Personalhistory of colonic polyps, Last colonoscopy: 2015 Referring MD: Jerrica Stacy M.D. Providers: Ashli Coats M.D. Medicines: Monitored Anesthesia Care Complications: No immediate complications. Estimated Blood Loss: Estimated blood loss was minimal. Procedure: Pre-Anesthesia Assessment: - Prior to the procedure, a History and Physical was performed, and patient medications, allergies and sensitivities were reviewed. The patient's toleranceof previous anesthesia was reviewed. - Immediately prior to administration ofmedications, the patient was re-assessed for adequacy to receive sedatives. - The risks and benefits of the procedure and the sedation options and risks were discussed with the patient. All questions were answered and informed consent was obtained. The benefits, risks and alternatives of theprocedure and sedation were discussed and informed consent was obtained. All questions were answered. Please referto the signed informed consent document in the medical record. The scope was passed under direct vision.The [id number] endoscope was introduced throughthe anus and advanced to the cecum, identified by appendiceal orifice and ileocecal valve. The colonoscopy was technically difficult and complexdue to a tortuous colon. Successful completion of the procedure was aided by applying abdominal pressure, using the head down position, and switching to a pediatric colonoscope. The patient tolerated the procedure well. The quality of the bowel preparation was evaluated using the BBPS ([place] BowelPreparation Scale) with scores of: Right Colon = 2 (minor amountof residual staining, small fragments of stool and/or opaque liquid, but mucosa seen well), TransverseColon = 3 (entire mucosa seen well with no residualstaining, small fragments of stool or opaque liquid) and Left Colon = 3 (entire mucosa seen well with no residual staining, small fragments of stool or opaqueliquid). The total BBPS score equals 8. The bowel preparation used was polyethylene glycol (PEG). Bowel prep was administered using a split dose. The quality of the bowel preparation was good. Findings: Hemorrhoids were found on perianal exam. Internal hemorrhoids were found during endoscopy. Hypertrophied anal papillae The sigmoid colon was tortuous. A 2 mm polyp was found in the ascending colon. The polyp was sessile. The polyp was removed with a cold biopsy forceps. Resection and retrieval were complete. The terminal ileum appeared normal. Impression: - Non bleeding external and internal hemorrhoids. - One 2 mm polyp in the ascending colon, removedwith a cold biopsy forceps. Resected and retrieved. - Tortuous sigmoid colon Recommendation: - Repeat colonoscopy in 5 years for surveillance. Attending Participation: I was present and participated during the entire procedure, including non-jordan portions. Electronically signed by Ashli Coats MD Ashli Coats M.D. 01/13/2020 2:36:15 PM . Number of Addenda: 0 Note Initiated On: 01/13/2020 1:02 PM Recognized by the [employer] for promoting quality in endoscopy us Ashli Coats MD ENDOSCOPY PROCEDURES Final Res ult * Serum Hepatitis C ab (11/18/2013 7:00 AM CDT) HCV ab Negative NEG HISTORICAL RESULTS Serum 11/18/2013 7:00 AM CDT Narrative HISTORICAL RESULTS - 11/18/2013 9:45 AM CDT Interpretive Data If confirmation is required, call Laboratory Customer Service to request sample to be sent to [facility] for Hepatitis C Virus (HCV) RNA Detection and Quantitation by Real-Time Reverse Prototype Engineer Manager-PCR (RT-PCR). Current interpretive data was last revised on 2011 us Corrie Kitchen MD LAB BLOOD ORDERABLES Fin al Result HISTORICAL RESULTS from Last 3 Months or Most Recently Relevant to Health Maintenance Insurance MEDICARE [employer]UE [employer] MEDICARE SUPPLEMENT MEDICARE MEDICARE [place]IC[place] MEDICARE [facility] MEDICARE SUPPLEMENT Advance Directives For more information, please contact: [phone] * Full Code (Latest Code Status on File) Date Activated Date Inactivated Comments 01/19/2024 8:55 PM 02/02/2024 9:57 PM * Full Code Date Activated Date Inactivated Comments 11/10/2023 11:47 AM 11/10/2023 5:53 PM * LIMITED - No CPR Date Activated Date Inactivated Comments 01/01/2023 9:51 PM 01/08/2023 9:13 PM Question Answer Comments Provide aggressive medical m anagement before a full cardiopulmonary arrest occurs. Use antibiotics, IV Fluids, and medical treatment unless specifically selected below: No intubation * Full Code Date Activated Date Inactivated Comments 01/01/2023 7:16 PM 01/01/2023 9:51 PM * LIMITED - No CPR Date Activated Date Inactivated Comments 10/29/2022 2:34 PM 10/29/2022 8:43 PM Question Answer Comments Provide aggressive medical m anagement before a full cardiopulmonary arrest occurs. Use antibiotics, IV Fluids, and medical treatment unless specifically selected below: No intubation Care Teams Entry Specialists Relationship Specialty Start Date End Date Jerrica Stacy MD [address] [place] [address] PCP - General Internal Medicine 02/11/24 Sheryl Morgan MD Referring Physician Endocrinology Diabetes & Metabolism 11/26/18 Brenda Harris MD [address] [facility] [address] [place] [address] Referring Physician Pulmonary Disease 06/10/21 Michela Nuno MD [address] [place] [address] Consulting Physician Colon and Rectal Surgery 12/20/21 Carlyn Shaffer MD [id number] [place] [address] Surgeon Colon and Rectal Surgery 02/18/22 Josey Morgan, RN Registered Nurse Pulmonary Disease 04/01/22 Johana Adame, ORTHODONTIST ASSISTANT [address] [place] [address] Speech Language Pathologist Speech Therapy 10/31/22 Lucio Plummer MD [address] [facility] [address] [place] [address] Consulting Physician Cardiology 04/23/23
--- OUTSIDE RECORDS SUMMARY | 2024-08-21 13:11 | XMS_ITS | Referral Summary ---
Author Organization [facility] Address [address] [place] [address] Care Team Providers Care Suture Polisher Name Role Phone Sheryl Morgan MD Unavailable Brenda Harris MD Unavailable Michela Nuno MD Unavailable [phone] Carlyn Shaffer MD Unavailable [phone] Josey Morgan RN Unavailable Valeria vailable Johana Adame Unavailable [phone] Lucio Plummer MD Unavailable [phone] Jerrica Stacy MD Primary Care Provi tamar Encounters Date Type Department Care Team Description 08/17/2024 4:00 PM CDT Telemedicine [facility] Psychiatry [address] [facility] [place] [address] Dav Luz, PhD Adjustment reaction with anxiety and depression (Primary Dx) 08/10/2024 Telephone [facility] Complete Care [facility] Medical Office Building [address], [address] [place] [address] Farrah Trejo, move coordinator Request 08/10/2024 4:00 PM CDT Telemedicine [facility] Psychiatry [facility] [place] [phone] Dav Luz, PhD Adjustment reaction with anxiety and depression (Primary Dx) 08/05/2024 Telephone [facility] Psychiatry [address] [facility] [place] [phone] Dav Luz, PhD 08/03/2024 Telephone [facility] Pulmonary [address] [facility] Advanced Medicine 8th [place] [address] [place] [address] Brenda Harris MD 08/03/2024 Telephone [facility] Pulmonary [facility]1 [facility] 8th [place] [address] [place] [address] Josey Morgan, FILIPE 08/03/2024 4:00 PM CDT Telemedicine [facility] Psychiatry [address] [place] [phone] Dav Luz, PhD Adjustment reaction with anxiety and depression (Primary Dx) 08/02/2024 Telephone [facility] Pulmonary [facility] 8th [place] [address] [place] [address] Josey Morgan, FILIPE 07/28/2024 Telephone [facility] Pulmonary [facility] 8th [place] [address] [place] [address] Becka Tracey, FILIPE 07/28/2024 Telephone [facility] Complete Care [address] [place] [address] Medical Office Building [address], [address] [place] [address] Sylvie Andrade, FILIPE Gastrostomy 07/28/2024 11:00 AM CDT Telemedicine [facility] Psychiatry [address] [place] [phone] Dav Luz, PhD Adjustment reaction with anxiety and depression (Primary Dx) 07/20/2024 Telephone [facility] Home Care Services [address] [place] [address] [address] [place] [address] Iraida Magallon 07/20/2024 Telephone [facility] Complete Care [facility] Medical Office Building [address], [address] [place] [address] Katerine Pinzon RN referral 07/14/2024 1:30 PM CDT Telemedicine [facility] Cardiology [address] [facility] 8th Floor [address] [place] [phone] Lydia Mena NP Paroxysmal A-fib (HCC) (Primary Dx) 07/13/2024 11:20 AM CDT Telemedicine [facility] [address] [facility] 12th Floor [address] [place] [phone] Jerrica Stacy MD Hypotension, unspecified hypotension type (Primary Dx); IPF (idiopathic pulmonary fibrosis) with acute on chronic respiratory failure, atypical mycobacterial infection (HCC); ILD (interstitial lung disease) (HCC); Nonintractable headache, unspecified chronicity pattern, unspecified headache type; Malnutrition compromising bodily function; Severe malnutrition; S/P percutaneous endoscopic gastrostomy (PEG) tube placement (HCC) 07/13/2024 4:00 PM CDT Telemedicine [facility] Psychiatry [address] [place] [address] [place] [phone] Dav Luz, PhD Adjustment reaction with anxiety and depression (Primary Dx) 07/07/2024 10:00 AM CDT Telemedicine [facility] Psychiatry [address] [place] [address] [place] [address] Dav Luz, PhD Adjustment reaction with anxiety and depression (Primary Dx) 06/30/2024 11:00 AM CDT Telemedicine [facility] Psychiatry [address] [place] [address] [place] [address] Dav Luz, PhD Adjustment reaction with anxiety and depression (Primary Dx) 06/28/2024 Orders Only [facility] Pulmonary [address] [facility] 8th [place] [address] [place] [phone] Brenda Harris MD ILD (interstitial lung disease) (HCC) (Primary Dx); High risk medication use 06/23/2024 10:00 AM CDT Telemedicine [facility] Psychiatry [address] [place] [phone] Dav Luz, PhD Adjustment reaction with anxiety and depression (Primary Dx) 06/16/2024 Telephone [facility] Pulmonary [address] [facility] [address] [place] [address] Karie Parker pa for pirfenidone (Per [facility] bin [id number] pcn MEDDADV id [id number] auth is approved for pirfenidone and good until 06/16/25 pa jordan [id number]) 06/16/2024 Orders Only [facility] Pulmonary [facility]1 [facility] Advanced Medicine 8th [place] [address] [place] [address] Brenda Harris MD IPF (idiopathic pulmonary fibrosis) ([facility]) (Primary Dx) 06/15/2024 4:00 PM CDT Telemedicine [facility] Psychiatry [address] [place] [phone] Dav Luz, PhD Adjustment reaction with anxiety and depression (Primary Dx) 06/02/2024 1:00 PM MAINFRAME PROGRAMMER Telemedicine [facility] Psychiatry [address] [place] [phone] Dav Luz, PhD Adjustment reaction with anxiety and depression (Primary Dx); ILD (interstitial lung disease) ([facility]) from Last 3 Months Allergies Active Allergy Reactions Criticality Noted Date [...] 02/02/2024 Assessment & Plan (02/02/2024 4:46 PM MAINFRAME PROGRAMMER): Urine has bad odor Prescribed ciprofloxacin 500 mg bid for 5 days Anemia 01/25/2024 Assessment & Plan (02/01/2024 6:14 PM MAINFRAME PROGRAMMER): Normocytic anemia, iron studies with low iron and transferrin sat from 01/22- iron deficiency anemia -continue to monitor Sore throat 01/24/2024 Assessment & Plan (01/31/2024 4:28 PM MAINFRAME PROGRAMMER): Sore throat and throat ulcer likely due [...] 01/23/2024 Assessment & Plan (02/23/2024 4:45 PM MAINFRAME PROGRAMMER): Encouraged her to follow up with her spike machine feeder to discuss the possibility of adrenal insufficiency. Back on prednisone 5mg daily in the meantime. Midodrine helping as well, continue 10mg TID Assessment & Plan (02/01/2024 10:55 PM MAINFRAME PROGRAMMER): Developed hypotension after general anesthesia for PEG [...] at the pylorus by GI on 01/21 -[facility] IMAGE CONSULTANT eval for dysphagia, cleared patient for regular diet and to swallow pills Plan -TF started, will monitor for refeeding syndrome. Electrolytes q12h, telemetry, pog gluc q6h -thiamine IV daily SOB (shortness of breath) 10/28/2023 Pulmonary hypertension 10/28/2023 Assessment & Plan (02/23/2024 4:49 PM MAINFRAME PROGRAMMER): Group III pHTN related to chronic lung [...] (11/27/2023 11:29 AM CDT): Confirmed on recent RHC Vertigo 08/31/2023 Assessment & Plan (08/31/2023 12:04 PM CDT): Present for a couple of months, mostly in the morning rolling over in bed, resolves quickly (<1 min) c/w BPPV Declined Platina-Hallpike today but counseled on Karina Maneuevers and [...] today. Assessment & Plan (02/09/2023 4:33 PM MAINFRAME PROGRAMMER): This is a common side effect of [...] dilation, normal duodenum. She has seen outpatient [facility] IMAGE CONSULTANT and reports improvement in her swallowing from [...] dilation, normal duodenum. She has seen outpatient [facility] IMAGE CONSULTANT and reports improvement in her swallowing from [...] (06/05/2022): Added automatically from request for surgery [id number] Borborygmi 06/05/2022 Overview (06/05/2022): Added automatically from request for surgery [id number] Assessment & Plan (02/09/2023 4:28 PM MAINFRAME PROGRAMMER): Unclear if side effect of eating more food, mirtazapine, or probiotic but unlikely to represent worrisome etiology Could experiment with stopping the probiotic again Epistaxis 06/02/2022 Assessment & Plan (06/02/2022 2:41 PM MAINFRAME PROGRAMMER): Resolved with minimal intervention ([place]ley nasal spray)- CTM Bruxism 06/02/2022 Assessment & Plan (06/02/2022 2:43 PM MAINFRAME PROGRAMMER): Will follow up with dentist re: nightguard Consider trial of magnesium at night 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 - Home omeprazole -> pantoprazole 40mg PO daily per formulary- pt requesting iv Assessment & Plan (06/26/2023 8:23 AM CDT): She did not get follow up EGD a; we discussed risks in the past Counseled to avoid NSAIDs Continue PPI but decrease to daily as symptoms are improved. Assessment & Plan (06/02/2022 2:58 PM MAINFRAME PROGRAMMER): She did not get follow up EGD [...] (04/24/2021): Added automatically from request for surgery [id number] Iron deficiency anemia 04/13/2021 Assessment & Plan (12/03/2021 1:40 PM CDT): EGD with gastric ulcer. 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 60lb reported weight loss over past 3 years 2/2 decreased appetite. Poor food intake but supplementing with Boost 4-6x/day. Admitted for G-tube placement per outpatient Pulmonology team. 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 Not interested in seeing outpt metal cabinet finisher Assessment & Plan (02/09/2023 8:39 PM MAINFRAME PROGRAMMER): She has not lost more weight since [...] to update TFTs to ensure normalized Saw metal cabinet finisher in the hospital. Eating her shakes and trying to increase protein and calories. Not interested in seeing outpt metal cabinet finisher Assessment & Plan (01/08/2023 10:07 AM CDT): BMI 15.6. Discussions ongoing regarding placement of PEG for nutrition given dysphagia, deconditioning. - Meets [place] Criteria for Severe Malnutrition as evident of [...] stabilized in the last month Seeing a metal cabinet finisher Declines appetite stimulating med at this point Assessment & Plan (06/02/2022 3:10 PM MAINFRAME PROGRAMMER): Trying mirtazapine as above Offered hand icer referral Continue meal replacement and strategized protein intake today Assessment & Plan (12/03/2021 4:27 PM CDT): Consider TCA as above Declines hand icer referral Assessment & Plan (05/30/2020 1:55 PM MAINFRAME PROGRAMMER): She has been gaining weight and overall doing better from this regard. CTM Assessment & Plan (12/01/2019 10:24 AM CDT): Improving although she pretty much has to force herself to eat Consider mirtazepine Assessment & Plan (04/22/2019 2:13 PM MAINFRAME PROGRAMMER): Weight has been stable since discharge. Will keep a close eye on this. She will keep eating multiple, small calorically dense meals daily and supplementing as she is able. If she loses more weight will refer to outpatient metal cabinet finisher- she will closely monitor Assessment & Plan (04/12/2019 10:05 AM MAINFRAME PROGRAMMER): Seen by nutrition - meets criteria for severe malnutrition Cont supplements and encouraging po intake Multivitamin Zinc supplement added Assessment & Plan (04/11/2019 8:49 AM MAINFRAME PROGRAMMER): Seen by nutrition - meets criteria for severe malnutrition Cont supplements and encouraging po intake Multivitamin Zinc supplement added Assessment & Plan (04/08/2019 7:22 AM MAINFRAME PROGRAMMER): Seen by nutrition - meets criteria for severe malnutrition Cont supplements and encouraging po intake Multivitamin Zinc level pending Assessment & Plan (04/10/2019 11:30 AM MAINFRAME PROGRAMMER): Meets criteria for severe malnutrition with recent unintentional weight loss and poor PO intake in the setting of her ongoing mycobacterial infection. - RD following. - Continue supplements. - Encourage PO intake. - Started multivitamin. - Zinc level was low. Started on supplementation. Assessment & Plan (04/07/2019 8:39 AM MAINFRAME PROGRAMMER): Seen by nutrition - meets criteria for severe malnutrition Cont supplements and encouraging po intake Add multivitamin Check zinc levels per nutrition recommendations Physical debility 04/06/2019 Assessment & Plan (02/01/2024 6:21 PM MAINFRAME PROGRAMMER): Able to complete some ADLs but generally homebound due to progressing ANGULO, weakness, and fatigue. Receiving 4 hours of assistance at home weekly but feels like she could benefit from more assistance. Has active HH referral but reportedly declined by [facility] home health. Wants to try establishing with external HH. - Discuss setting up HH with CM - PT/OT- rehab -dc to [facility] once tolerates bolus feeds - fw PMR note, needed for TRISL Assessment & Plan (04/10/2019 11:30 AM MAINFRAME PROGRAMMER): In setting of chronic infection, poor appetite, and weight loss. - PT evaluated. Recommended home with no needs. Assessment & Plan (04/06/2019 7:51 AM MAINFRAME PROGRAMMER): Due to weight loss and poor nutritional status. 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 Per most recent outpatient Pulmonology note, regimen [...] CTM Assessment & Plan (05/30/2020 1:51 PM MAINFRAME PROGRAMMER): On antibiotics long-term per Dr Harris for atypical mycobacterial infection Plan is for repeat bronch when deemed safe Assessment & Plan (04/22/2019 2:08 PM MAINFRAME PROGRAMMER): On antibiotics long-term per Dr Harris for atypical mycobacterial infection Assessment & Plan (04/12/2019 10:54 AM MAINFRAME PROGRAMMER): Patient with atypical mycobacterial lung infection. Initially [...] outpatient. 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 Initially [...] (12/06/2018): Added automatically from request for surgery [id number] IPF (idiopathic pulmonary fi brosis) with acute on chronic respiratory failure, atypical mycobacterial infection 08/31/2018 Assessment & Plan (02/01/2024 6:20 PM MAINFRAME PROGRAMMER): Subacutely worsened dyspnea with notable decrease in [...] chronic atypical mycobacterial infection, pt of Dr. Harris's. Has not been on nintedanib or pirfenidone, uses 5L O2 at night. Presented with 2 weeks of worsening ANGULO, concern for FTT (unintentional weight loss 64 lbs in 5 years) BMI 15.6. For her VALERIE infection diagnosed in 2018, she was treated with azithromycin, ethambutol, rifampin, [...] week course. We spoke with her primary barrel washer machine and will plan for 10 days of [...] pulm Assessment & Plan (05/30/2020 1:50 PM MAINFRAME PROGRAMMER): Follows up with Dr Harris in the [...] daily Assessment & Plan (02/01/2024 6:20 PM MAINFRAME PROGRAMMER): Asymptomatic, controlled with propafenone. Not on anticoagulation. [id number] score 3 (prior TX in history but unclear if true TX based on chart records, maybe had some symptomatic troponin elevation with negative EKG). History of healed gastric ulcer on PPI. - not on anticoagulation -continue propafenone (needs to bring her on supply for TRISL) -Telemetry Assessment & Plan (06/22/2023 10:56 AM CDT): Follows with Dr Plummer's office Minimal symptoms on propafenone On ASA 325mg Assessment & Plan (05/26/2023 12:30 PM MAINFRAME PROGRAMMER): Symptoms well controlled on propafenone 150 mg [...] propranolol Assessment & Plan (04/22/2019 2:01 PM MAINFRAME PROGRAMMER): She would like to transition to the system- referral placed Assessment & Plan (04/12/2019 10:55 AM MAINFRAME PROGRAMMER): Not on anti-coagulation. Normal rate on exam on admission. - Continue aspirin 325 mg daily. - On propranolol for headaches, but also provides some rate control. - Continue propafenone. Assessment & Plan (04/05/2019 7:28 PM MAINFRAME PROGRAMMER): Not on anti-coagulation. Normal rate on exam [...] about given her IPF. Will discuss with rebeca. Now on ASA 325mg daily for AC given her terrible nose bleed. Assessment & Plan (03/19/2018 7:31 AM MAINFRAME PROGRAMMER): Etiology unclear but may have been combination of hypokalemia, URI/decongestant use, age, etc Now in NSR s/p amiodarone + heparin gtt at [facility] TTE revealed EF 55%, diastolic dysfunction, mild conc LVH She did have troponin bump -> will need eval for ischemic heart disease but will defer this to her motorized squad sergeant Continues on amio 200mg BID + Xarelto [...] discharge Assessment & Plan (02/09/2023 4:29 PM MAINFRAME PROGRAMMER): Recent testing fairly stable except now she has some pHTN Now in pul rehab Assessment & Plan (12/22/2022 11:36 AM CDT): PFTs and Cts scheduled later today Assessment & Plan (12/03/2021 4:28 PM CDT): Symptoms stable. Mgmt as per pul Assessment & Plan (04/12/2019 10:55 AM MAINFRAME PROGRAMMER): Likely IPF. Indeterminate for UIP on CT chest. Autoimmune workup previously negative. Follow with Dr. Harris in Pulmonary Clinic. Does not require supplemental O2 at this time. Able to perform daily activities with shortness of breath. Not on IPF medications currently. - Continue to follow-up in pulmonary clinic as an outpatient. Assessment & Plan (04/05/2019 7:25 PM MAINFRAME PROGRAMMER): Likely IPF. Indeterminate for UIP on CT [...] antibiotics Assessment & Plan (03/19/2018 7:34 AM MAINFRAME PROGRAMMER): Now established with Dr Keane and concern [...] labs Assessment & Plan (04/22/2019 2:06 PM MAINFRAME PROGRAMMER): TSH suppressed in November - encouraged her [...] step Assessment & Plan (06/02/2022 2:49 PM MAINFRAME PROGRAMMER): Magnesium may help with this as well [...] case Assessment & Plan (04/22/2019 2:11 PM MAINFRAME PROGRAMMER): I wonder if her migraines could have [...] anxiety Assessment & Plan (02/23/2024 4:42 PM MAINFRAME PROGRAMMER): She prefers to resume bupropion but will reconsider if she feels like it negative impacts her appetite or sleep Otherwise will continue sertraline and mirtazapine at current doses Assessment & Plan (01/31/2024 4:24 PM MAINFRAME PROGRAMMER): Continue home bupropion, sertraline, mirtazapine -hold mitrazapine [...] bupropion Assessment & Plan (06/02/2022 2:48 PM MAINFRAME PROGRAMMER): Will start mirtazapine for sleep and appetite- [...] therapist Assessment & Plan (05/30/2020 1:46 PM MAINFRAME PROGRAMMER): She is dealing with tons of situational [...] stressors. Assessment & Plan (04/22/2019 2:14 PM MAINFRAME PROGRAMMER): She feels like her current medications are helping but she does have terrible stressors. Declines medication change. Assessment & Plan (04/05/2019 7:27 PM MAINFRAME PROGRAMMER): - Continue Wellbutrin and sertraline. Assessment & [...] daily Assessment & Plan (04/05/2019 7:25 PM MAINFRAME PROGRAMMER): - Continue Crestor. Assessment & Plan (11/26/2018 [...] 02/23/2024 Assessment & Plan (04/12/2019 10:55 AM MAINFRAME PROGRAMMER): Blood pressures running low generally ~80-90/50. No evidence of shock. She is mentating well and completely asymptomatic. Lactate normal. Assessment & Plan (04/09/2019 11:09 AM MAINFRAME PROGRAMMER): Blood pressures running low generally ~80-90/50. No evidence of shock. She is mentating well and completely asymptomatic. Lactate normal. Severe malnutrition 04/07/2019 12/01/19 21 Overview (11/30/2020): Last Assessment & Plan: Improving although she pretty much has to force herself to eat Consider mirtazepine Positive FIT (fecal immunochemical test) 01/27/2019 04/22/2019 Overview (01/27/2019): Added automatically from request for surgery [id number] Fecal occult blood test positive 12/06/2018 11/30/2020 Overview (12/06/2018): Added automatically from request for surgery [id number] Assessment & Plan (04/22/2019 2:00 PM MAINFRAME PROGRAMMER): Noted Mar 2018. She was referred for [...] her to discuss side effects with her motorized squad sergeant and consider a trial off. Will check stool studies + consider colonoscopy as next steps Occult blood positive stool 04/12/2018 04/22/2019 Abdominal pain 04/06/2018 11/26/2018 Assessment & Plan (04/06/2018 9:44 PM MAINFRAME PROGRAMMER): Unclear etiology. She describes feeling constipated but [...] her to discuss her symptoms with her motorized squad sergeant who she sees next week Consider CT [...] Depression Assessment & Plan (03/18/2018 11:04 AM MAINFRAME PROGRAMMER): She is feeling down at the moment- she is off Lexapro but her low mood predates stopping this med Will hold Lexapro until she follows up with her motorized squad sergeant next week. If amiodarone is DCed we can easily restart at that time. Continue bupropion in the meantime. I encouraged her to resume therapy sessions as well. Will re-address when acute stressors have improved. Benign colonic polyp 02/17/2012 019 Immunizations Immunization Administration Dates Next Due COVID-19 mRNA ([employer]) 0.3 m L (30 mcg) vaccine (12 [...] ZOSTER LIVE 03/30/2015,11/28/2013 ZOSTER Recombinant 02/25/2019,12/26/2018, 019 Social History Tobacco Use Types Packs/Day Years [...] on file Legal 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:00 AM MAINFRAME PROGRAMMER Gender Identity Not on file Sexual Orientation Not on file Last Filed Vital Signs Vital Sign Reading Time Taken Comments Blood Pressure 93/62 03/25/2024 2:30 PM MAINFRAME PROGRAMMER Pulse 81 03/25/2024 2:30 PM MAINFRAME PROGRAMMER Temperature 36.9 C (98.5 F) 03/25/2024 2:30 PM MAINFRAME PROGRAMMER Respiratory Rate 18 03/25/2024 2:30 PM MAINFRAME PROGRAMMER Oxygen Saturation 99% 03/25/2024 2:30 PM MAINFRAME PROGRAMMER Inhaled Oxygen Concentration - - Weight 34 kg (75 lb) 02/06/2024 11:31 AM MAINFRAME PROGRAMMER Height 152.4 cm (5') 02/06/2024 11:31 AM MAINFRAME PROGRAMMER Body Mass Index 14.65 02/06/2024 11:31 AM MAINFRAME PROGRAMMER Plan of Treatment Scheduled Procedures Name Priority Associated Diagnoses Date/Ti me ESOPHAGOGASTRODUODENOSCOPY Iron deficiency anemia, unspecified iron deficiency anemia type Non-intractable vomiting with nausea, unspecified vomiting type Procedures Procedure Name Priority Date/Time Associated Diagnosis [...] compared to prior imaging studies performed at [facility] on 07/01/2018, 06/07/2020 and 07/01/2021. The breasts [...] compared to prior imaging studies performed at [facility] on 07/01/2018, 06/07/2020 and 07/01/2021. The breasts [...] Armando Escudero M.D., Ph.D. Sheryl Morgan MD IM DXA PROCEDURES Final Result * COLONOSCOPY (01/13/2020 1:02 PM CDT) Anatomical Region Laterality Modality Other Narrative Procedure Note Early, Ashli Brooke MD - 01/13/2020 1:02 PM CDT [facility] ENDOSCOPY [facility] Patient Name: Celi Collins Procedure Date: 01/13/2020 1:02 PM Date of : 1950 Admit Type: Outpatient Age: 69 Gender: Female Attending MD: Ashli Coats M.D. Room: [facility] ENDOSCOPY ROOM 9 Note Status: Finalized [...] The scope was passed under direct vision.The CF [id number] endoscope was introduced throughthe anus and [...] bowel preparation was evaluated using the BBPS ([place] BowelPreparation Scale) with scores of: Right Colon [...] On: 01/13/2020 1:02 PM Recognized by the [employer] for promoting quality in endoscopy us Ashli Coats MD ENDOSCOPY PROCEDURES Final Res ult * Serum Hepatitis C ab (11/18/2013 7:00 AM CDT) HCV ab Negative NEG HISTORICAL RESULTS Serum 11/18/2013 7:00 AM CDT Narrative HISTORICAL RESULTS - 11/18/2013 9:45 AM CDT Interpretive Data If confirmation is required, call Laboratory Customer Service to request sample to be sent to [facility] for Hepatitis C Virus (HCV) RNA Detection and Quantitation by Real-Time Reverse Craps Dealer-PCR (RT-PCR). Current interpretive data was last revised on 2011 us Corrie Kitchen MD LAB BLOOD ORDERABLES [facility] al Result HISTORICAL RESULTS from Last 3 Months or Most Recently Relevant to Health Maintenance Insurance MEDICARE [facility] MEDICARE SUPPLEMENT MEDICARE [place]IC[place] [id number] [facility] MEDICARE [facility] MEDICARE SUPPLEMENT Advance Directives For more information, please contact: [phone] * Full Code (Latest Code Status on [...] specifically selected below: No intubation Care Teams Suture Polisher Relationship Specialty Start Date End Date Jerrica Stacy MD [address] [facility] [address] [place] [address] PCP - General Internal Medicine 02/11/24 Sheryl Morgan MD Referring Physician Endocrinology Diabetes & Metabolism 11/26/18 Brenda Harris MD [address] [facility] [address] [place] [address] Referring Physician Pulmonary Disease 06/10/21 Michela Nuno MD [address] [place] [address] Consulting Physician Colon and Rectal Surgery 12/20/21 Carlyn Shaffer MD [phone] [place] [address] Surgeon Colon and Rectal Surgery 02/18/22 Josey Morgan, RN Registered Nurse Pulmonary Disease 04/01/22 Johana Adame, WARDROBE IMAGE CONSULTANT [address] [place] [address] Speech Language Pathologist Speech Therapy 10/31/22 Lucio Plummer MD [address] [facility] [address] [place] [address] Consulting Physician Cardiology 04/23/23
--- OUTSIDE RECORDS SUMMARY | 2024-08-21 13:11 | XMS_ITS | Encounter Summary ---
Author Organization [facility] Address [address] [facility] [address] [place] [address] Phone Care Team Providers Care Solar Designer Name Role Phone JesseMineSheryl Blackmon MD Unavailable [phone] Brenda Harris MD Unavailable [phone] Christopher Ureña MD Unavailable [phone] Jerrica Stacy MD Primary Care Provi tamar Brenda Harris MD Unavailable [phone] Michela Nuno MD Unavailable [phone] Carlyn Shaffer MD Unavailable Josey Morgan RN Unavailable Valeria Johana Cherry Unavailable Lucio Plummer MD Unavailable Jerrica Stacy MD Primary Care Provi tamar Encounter Details Date Type Department Care Team (Latest Contact Info) Description 10/13/2019 Orders Only [facility] Scanning, Provider [...] on file 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 Gender Identity Not on file Sexual Orientation Not on file documented as of this encounter Plan of Treatment Scheduled Procedures Name Priority Associated Diagnoses Date/Ti me ESOPHAGOGASTRODUODENOSCOPY Iron deficiency anemia, unspecified iron deficiency anemia type Non-intractable vomiting with nausea, unspecified vomiting type documented as of this encounter Procedures Procedure Name Priority Date/Time Associated Diagnosis Comments SCAN - LABS 10/13/2019 documented in this encounter Results * SCAN - LABS (10/13/2019) Provider Scanning Final Result documented in this [...] Comment:01/28/2024 IP Review: negative CRE swab from [facility] surveillance. Angelica Hill RN [address] [facility] 01/23/2024 01/23/2024 01/28/2024 1:38 PM C DT C. difficile suspected 02/10/2024 02/10/202402/09 7:46 PM GAS BRAZER documented as of this encounter Care Teams Solar Designer Relationship Specialty Start Date End Date Jerrica Stacy MD PCP - General Internal Medicine 03/03/19 02/10/24 Jerrica Stacy MD [address] [facility] [address] [place] [address] PCP - General Internal Medicine 02/11/24 Sheryl Morgan MD Referring Physician Endocrinology Diabetes & Metabolism 11/26/18 Brenda Harris MD Referring Physician Pulmonary Disease 11/26/18 06/09/21 Christopher Ureña MD Referring Physician Cardiovascular Disease 11/26/18 Brenda Harris MD [address] [facility] [address] [place] [address] Referring Physician Pulmonary Disease 06/10/21 Michela Nuno MD [address] [place] [address] Consulting Physician Colon and Rectal Surgery 12/20/21 Carlyn Shaffer MD [phone] [place] [address] Surgeon Colon and Rectal Surgery 02/18/22 Josey Morgan, RN Registered Nurse Pulmonary Disease 04/01/22 Johana Adame, READING AIDE [address] [place] [address] Speech Language Pathologist Speech Therapy 10/31/22 Lucio Plummer MD [address] [facility] [address] [place] [address] Consulting Physician Cardiology 04/23/23 documented as of this encounter
--- OUTSIDE RECORDS SUMMARY | 2024-08-21 13:12 | XMS_ITS | Encounter Summary ---
Author Organization [facility] Address [address] [facility] [address] [place] [address] Phone Care Team Providers Care Geochemist Name Role Phone Jerrica Stacy MD Primary Care Provi tamar Sheryl Morgan MD Unavailable [phone] Brenda Harris MD Unavailable [phone] Christopher Ureña MD Unavailable [phone] Brenda Harris MD Primary Care Provider [phone] Jerrica Stacy MD Primary Care Provi tamar Brenda Harris MD Unavailable [phone] Michela Nuno MD Unavailable [phone] Carlyn Shaffer MD Unavailable [phone] Josey Morgan RN Unavailable Valeria Johana Cherry Unavailable [phone] Lucio Plummer MD Unavailable [phone] Jerrica Stacy MD Primary Care Provi tamar Encounter Details Date Type Department Care Team (Latest Contact Info) Description 06/11/2018 Orders Only [facility] Scanning, Provider Social History Tobacco Use Types Packs/Day Years Used Date Smoking Tobacco: Former Smokeless Tobacco: Never Comments:Smoking History Pac ks/day: 2.5 Packs Alcohol Use Standard Drinks/Week Comments Yes 0 (1 standard drink = 0.6 oz pur e alcohol) Comments Unknown Sex and Gender Information Value Date Recorded Sex Assigned at Not on file 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 Gender Identity Not on file Sexual Orientation Not on file documented as of this encounter Plan of Treatment Scheduled Procedures Name Priority Associated Diagnoses Date/Ti me ESOPHAGOGASTRODUODENOSCOPY Iron deficiency anemia, unspecified iron deficiency anemia type Non-intractable vomiting with nausea, unspecified vomiting type documented as of this encounter Procedures Procedure Name Priority Date/Time Associated Diagnosis Comments CARDIOLOGY DOCUMENT SCAN 06/11/2018 documented in this encounter Results * SCAN - CARDIOLOGY (06/11/2018) Anatomical Region Laterality Modality Other Provider Scanning [...] from [facility] surveillance. Angelica Hill RN [address] [facility] 01/23/2024 01/23/2024 01/28/2024 1:38 PM C DT C. difficile suspected 02/10/2024 02/10/202402/09 7:46 PM MOTOR VEHICLE ASSEMBLER documented as of this encounter Care Teams Geochemist Relationship Specialty Start Date End Date Jerrica Stacy MD PCP - General 02/05/17 03/01/19 Brenda Harris MD [address] [place] [address] PCP - General 03/02/19 03/02/19 Jerrica Stacy MD PCP - General Internal Medicine 03/03/19 02/10/24 Jerrica Stacy MD [address] [facility] [address] [place] [address] PCP - General Internal Medicine 02/11/24 Sheryl Morgan MD Referring Physician Endocrinology Diabetes & Metabolism 11/26/18 Brenda Harris MD Referring Physician Pulmonary Disease 11/26/18 06/09/21 Christopher Ureña MD Referring Physician Cardiovascular Disease 11/26/18 Brenda Harris MD [address] [facility] [address] [place] [address] Referring Physician Pulmonary Disease 06/10/21 Michela Nuno MD [address] [place], [place] [address] Consulting Physician Colon and Rectal Surgery 12/20/21 Carlyn Shaffer MD [address] [facility] [phone] [place] [address] Surgeon Colon and Rectal Surgery 02/18/22 Josey Morgan, RN Registered Nurse Pulmonary Disease 04/01/22 Johana Adame, RACE STARTER [address] [facility] [address] [place] [address] Speech Language Pathologist Speech Therapy 10/31/22 Lucio Plummer MD [address] [facility] [address] [place] [address] Consulting Physician Cardiology 04/23/23 documented as of this encounter
--- OUTSIDE RECORDS SUMMARY | 2024-08-21 13:12 | XMS_ITS | Data Portability ---
Author Organization [place] - [facility], Main Office Address [address] [place] [address] Assessment No assessment recorded. Plan of Treatment Reminders Order Date Submit Date Provider Last Modified By Organization Details Last Modified Time Details Appointments None recorded. Lab None recorded. Referral colon & rectal surgeon referral - She understands that Dr. Shaffer is booked out for about 3 months but wants to wait to see her. She wants to go to [facility]. 2021 022 [email or web address] Carlyn Shaffer MD, [address] [facility], [place], [address], 3 05:39:27 Procedures None recorded. Surgeries None recorded. Imaging None recorded. Medication Orders None recorded. Patient TargetsNo targets recorded. Patient Instructions Encounter Date Encounter Id Patient Instructions Last Modified By Organization Details Last Modified Time 01/14/2022 [id number] She will follow up with me only as needed. She will see Dr. Shaffer as above. On today's visit I spent a total of {{30 35* 40 45 50 55 60}} minutes prepping for her visit (reviewing shared records), [id number] with her and documenting. [email or web address] Not available 01/14/2022 17:32:04 Reason for Referral Colon & Rectal Surgeon Refer ral for Hypertrophied anal papilla She understands that Dr. Shaffer is booked out for about 3 months but wants to wait to see her. She wants to go to [facility]. Referring Physician: Michela Nuno, Family Medicine, Encounter Date: 01/14/2022 Problems Name Problem SNOMED Code Status Onset Date Resolution Date Notes Provider Name and Address Organization Details Recorded Time Hypertrophi ed anal papilla 92824084 Active 2021 Michela Nuno MD [address] [place] [address],[place] [address], [place], [address], [facility] [place] 2 16:56:43 History of polyp of colon 895713528 Active 2021 Michela Nuno MD [address] [place] [address],[place] [address], [place], [address], [facility] [place] 2 17:01:28 Idiopathic pulmonary fibrosis 327112275 Active 2021 Michela Nuno MD [address] [place] [address],[place] [address], [place], [address], [facility] 2 17:30:04 Atypical mycobacteri al infection of lung 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 Procedures Surgical History Date Name Laterality Status Provider Name and Address Organization Details Recorded Time 2021 Anoscopy completed Michela Nuno MD [address] [place] [address],[facility] [address] [facility], [place], [address], [facility] 2 16:56:25 2019 Colonoscopy completed Michela Nuno MD [address] [place] [address],[address], [place], [address], [facility] 2 16:47:03 2019 esophagogastroduodenoscopy completed Michela Nuno MD [address] [facility],[place] [address], [place], [address], [facility] [place] 2 16:47:35 Imaging Results None recorded. Procedure Notes None recorded. Medical Equipment None Reported. Allergies Allergen ID Allergen Name Allergen Category Reaction Reaction Severity Criticality Documentation Date Start Date Code Code System Note Provider Name and Address Organization Details Recorded Time 6821 codeine medicatio n Not available Not available Not available 01/14/2022 2670 RxNorm samuel philip leydi, [facility] [place] 15:39:27 6822 sumatript an medicatio n Not available Not available Not available 01/14/2022 88832 [facility] [place] 15:39:37 6823 topiramat e medicatio n Not available Not available Not available 01/14/2022 61558 [facility] [place] 15:39:54 Medications Name Sig Start Date Stop Date Status Note LastModified by Organization Details LastModified Time propafenon e 150 mg tablet active Not Available Not Available Not Available azithromyc in 250 mg tablet TAKE 1 TABLET BY MOUTH EVERY DAY active Not Available Not Available No t Available aspirin 325 mg tablet Take 1 tablet every day by oral route. active 01/14/22: She takes daily for paroxysma l a. fib. Not Available Not Available Not Available sucralfate 1 gram tablet TAKE 1 TABLET BY MOUTH 4 TIMES A DAY TAKE 1 HOUR BEFORE MEALS AND AT BEDTIME active Not Available Not Available No t Available sertraline 100 mg tablet active Not Available Not Available Not Available omeprazole 40 mg capsule,de layed release TAKE 1 CAPSULE (40 MG TOTAL) BY MOUTH DAILY. active Not Available Not Available No t Available rifampin 300 mg capsule TAKE 2 CAPSULES BY MOUTH DAILY. active Not Available Not Available No t Available prednisolo ne acetate 1 % eye drops,susp ension INSTILL 1 DROP INTO AFFECTED EYE THREE TIMES DAILY, BEGIN AFTER SURGERY active Not Available Not Available No t Available ethambutol 400 mg tablet active Not Available Not Available Not Available ethambutol 100 mg tablet TAKE 3 TABLETS BY MOUTH WITH 1 400 MG TABLET FOR A TOTAL DOSE OF 700 MG DAILY active Not Available Not Available No t Available propranolo l ER 80 mg capsule,24 hr,extende d release active Not Available Not Available No t Available ergocalcif jed (vitamin D2) 1,250 mcg (50,000 unit) capsule TAKE 1 (ONE) CAPSULE BY MOUTH EVERY 7 DAYS active Not Available Not Available No t Available rosuvastat in 10 mg tablet active Not Available Not Available Not Available bupropion HCl XL 150 mg 24 hr tablet, extended release active Not Available Not Available Not Available Arikayce 590 mg/8.4 mL suspension for inhalation via nebulizati on active Not Available Not Available Not Available Vitals None Recorded Social History Question Answer Notes LastModified by Organizat ion Details LastModified Time Tobacco Smoking Status Former Smoker samuel holley [place] - [facility] [place] 01/14/2022 15:41:23 Alcohol Use No Information n ot available 01/14/2022 Caffeine Use Yes Information not available 01/14/2022 Caffeine Type Coffee Information not available 01/14/2022 Caffeine Amount 1 Cup Daily Information not available 01/14/2022 Illicit Drug Use No Information not available 01/14/2022 What Was The Date Of Your Most Recent Tobacco Screening? 01/14/2022 Information not available 01/14/2022 How Many Years Have You Smoked Tobacco? 35 Information not available 01/14/2022 Sex: Female Functional Status Question Answer Note LastModified by Organization D etails LastModified Time Do you or have you ever used any other forms of tobacco or nicotine? Yes Information not available 01/14/2022 Mental Status None recorded. Family History Relationship Description Onset Age of this Age Resolved Age Notes LastModified by Organization Details LastModified Time Father No current problems or disability [email or web address] Not available 01/14 16:45:18 Mother No current problems or disability [email or web address] Not available 01/14 16:45:18 Notes:She noted no significa nt family history. Medical History Condition Response Anxiety Disorder Y Other Y Atrial Fibrillation Y Hyperthyroidism Y Heart Attack Y Depression Y Anemia Y Reflux/GERD Y High Cholesterol Y Mitral Valve Prolapse Y Headaches/Migraines Y Colon/Rectal Polyps Y Gynecological History Statement/Question Response Episiotomy During Delivery? N Number of Pregnancies? 1 Tear or Laceration During Delivery? N Could You Be or Are You Currently Pregna nt? N Number of Vaginal Deliveries? 1 Accidental Bowel Leakage Post Delivery? N Obstetrics History GPAL:G 0 P 0 0 0 0 Past Encounters Encounter ID Performer Location Encounter Start Date Encounter Closed Date Diagnosis/Indication Diagnosis SNOMED-CT Code Diagnosis ICD10 Code Diagnosis Note [id number] Michela Nuno MD Main Office [address] [place] [address] 01/14/2022 15:23:33 01/14/2022 16:23:14 Hypertrophied anal papilla 58314304 K62.89 I discussed with her that her symptoms are not just her hemorrhoid s. She is feeling the tag. I discussed with her that I do not think this is a true polyp although that does have to be considered . She is bothered by the symptoms anyway. I advised that the only way to get rid of this would be with a surgical excision but I do not think that will be a very invasive procedure. I am referring her to Carlyn Shaffer MD with [facility] for considerat ion of excision.I discussed with her that her hemorrhoid s are not in need of treatment. I advised that she needs to consistent ly eat a high fiber diet and drink plenty of water to maintain her twice daily BM's that are soft (Hastings Scale type 4). I advised that the psyllium is probably not hurting her but she does not want to take it as she is afraid it is decreasing her appetite more and she has already lost 60 pounds. She will probably go off of it. History of polyp of colon 646075472 Z86.010 She had a 2 mm sessile TA in the ascending colon on her last scope done 01/13/2020 . She evidently is supposed to repeat her scope at 5 years but she does not want to do so. Given her other medical issues I advised she probably does not need to have a repeat but she needs to talk to her PCP about this as well (of course). Idiopathic pulmonary fibrosis 232217991 J84.112 She follows routinely with her pulmonolog ist. 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 Paroxysmal atrial fibrillation [id number] I48.0 She takes a full aspirin daily and follows with her cardiologi st. Health Concerns Section Related Observation LastModified by Organization Detai ls LastModified Time None Recorded Concern Status LastModified by Organization Details LastModified Time None Recorded Advance Directives Directive None Recorded Payers Encounter Date Sequence Insurance Name Policy Number Policy Velázquez Covered Member ID Velázquez Member ID Guarantor Name 01/14/2022 1 [place] Celi Collins [id number] Celi De Los Santoselizabethhui 01/14/2022 2 [employer] (MEDICARE SUPPLEMENT) Celi De Los Santoselizabethhui [id number] Celi Collins Notes Date Note Type Note Provider Name and Address Organization Details Recorded Time 01/14/2022 text/html This is an extremely pleasant 71 year old woman who did have hemorrhoids with her pregnancies and deliveries 40+ years ago. These resolved completely and she did not have symptoms throughout the years.Over the last year or more she has had a lot of medical issues. She has lost about 60 - 70 pounds. Over the last 4 - 6 months she has had something is out there around/at the anal opening. She has some discomfort especially after BM's. She presents today to have this evaluated and to discuss her treatment options. Bleeding: She has had no bleeding with BM's or leakage of blood in between BM's. Pain: None Itching: Not really Discharge: She has no difficulty getting or staying clean after BM's. Prolapse: She feels prolapse of tissue with every BM. This reduces on its own but she does think it is getting harder to reduce. She has no prolapse with activity. External swelling: Not really Discomfort: She states it is just uncomfortable when the tissue is prolapsed. She has no discomfort once it reduces. Previous Hemorrhoid Treatment: She has used multiple OTC products but they have not helped. She has never had a prescription for or procedure on her hemorrhoids. Previous Lower GI Endoscopy: She thinks she has had a total of 4 c-scopes and does have a history of polyps. Her last scope was on 01/13/2020 and there was a 2 mm sessile TA in the ascending colon. Her continuity of care document from [facility] notes she is due for a repeat scope at 10 years but the c-scope report notes due for repeat at 5 years. Ashli Coats MD. Celi states she does not want to have a repeat scope ever again. She did also have a tortuous colon and a hypertrophied anal papillae was noted. Bowel Habits: She has had long standing twice daily BM's that are soft (Hastings Scale type 4). She has maintained this even though her appetite has been down and she is not eating as much. She did recently start psyllium on advise of her PCP but it sounds like she is taking only a tiny amount. She does not feel it has changed her BM's. She doesn't like taking it. Michela Nuno MD [address], [place], [address], [facility] 01/14/2022 17:35:10 OBGyn Episode No OBEpisode recorded.
--- NOTE | 2024-08-21 13:17 | PC.NURSE ---
Dr montiel at bedside with 16 fr peg tube, patient was having significant discomfort, 10 fr lawler catheter placed with gauze dressing applied.
--- NOTE | 2024-08-21 13:25 | ED.GENADULT ---
HPI - General Adult General Chief complaint: Skin/Abscess/Foreign Body Stated complaint: g tube out Time Seen by Provider: 08/21/24 13:00 History of Present Illness HPI narrative: 74-year-old female history of idiopathic pulmonary fibrosis and decreased oral intake and is G-tube dependent for her feeds since December presents emergency department for evaluation for a dislodged G-tube since approximately 9:00 a.m. this morning. Upon arrival to the emergency department G-tube could not be replaced with the 16 Vietnamese due to increased abdominal tenderness. However a 10 Vietnamese Maxwell catheter was placed with no difficulty. Related Data Home Medications ?Medication ?Instructions ?Recorded ?Confirmed ?Last Taken ?Type aspirin 325 mg tablet 325 mg PO DAILY 06/01/19 06/01/19 Unknown History azithromycin 250 mg tablet 250 mg PO DAILY 06/01/19 06/01/19 Unknown History bupropion HCl 150 mg 24 hr tablet, 150 mg PO QAM 06/01/19 06/01/19 Unknown History extended release calcium carbonate (Calcium 600) 1,200 mg PO DAILY 06/01/19 06/01/19 Unknown History cholecalciferol (vitamin D3) 25 25 mcg PO DAILY 06/01/19 06/01/19 Unknown History mcg (1,000 unit) tablet (Vitamin D3) ethambutol 100 mg tablet 700 mg PO DAILY 06/01/19 06/01/19 Unknown History multivit with minerals-iron 18 1 tablet PO DAILY 06/01/19 06/01/19 Unknown History mg-folic ac 400 mcg-vit K 25 mcg tablet (Adults Multivitamin) propafenone 150 mg tablet 150 mg PO BID 06/01/19 06/01/19 Unknown History propranolol 80 mg capsule,extended 80 mg PO DAILY 06/01/19 06/01/19 Unknown History release 24 hr rifampin 300 mg capsule 600 mg PO DAILY 06/01/19 06/01/19 Unknown History rosuvastatin 10 mg tablet 10 mg PO DAILY 06/01/19 06/01/19 Unknown History sertraline 100 mg tablet 100 mg PO DAILY 06/01/19 06/01/19 Unknown History zinc sulfate 50 mg zinc (220 mg) 220 mg PO DAILY 06/01/19 06/01/19 Unknown History tablet Allergies Allergy/AdvReac Type Severity Reaction Status Date / Time Sulfa (Sulfonamide Allergy Mild Unknown Verified 08/21/24 12:55 Antibiotics) sumatriptan Allergy Mild Nausea Verified 08/21/24 12:55 topiramate Allergy Mild Nausea Verified 08/21/24 12:55 codeine Allergy Unknown Unknown Verified 08/21/24 12:55 Review of Systems Review of Systems: All systems reviewed & are unremarkable except as noted in HPI and below PMFSH Family History Family History (Updated 05/24/19 @ 11:37 by Jamaica Pyle RN) Father Family history of mental disorder CAD (coronary artery disease) of artery bypass graft Alzheimer's dementia Mother Pancreatic cancer Sibling Alzheimer's dementia Social History Social History Smoking status: Former smoker Tobacco type: cigarettes Smoking end date: 05/24/19 Alcohol intake: never Exam Narrative: APPEARANCE: Well appearing, no pain, no distress, well-nourished. HEAD: normocephalic, atraumatic. EYES: PERRLA/EOMI, conjunctivae clear. NOSE: Normal no drainage EARS:TMS clear with good light reflex. THROAT: Pharynx clear, no exudate. NECK: Supple. No adenopathy, no masses. RESPIRATORY: Airway patent, respirations nonlabored. Clear to auscultation bilaterally, no rales, rhonchi, wheezing. CARDIOVASCULAR: Regular rate and rhythm without murmurs rubs or gallops. ABDOMINAL: Tenderness to palpation at G-tube site MUSCULOSKELETAL: Moves all extremities. Strength/ROM intact, No edema, No calf tenderness. NEURO: Alert. Cranial nerves II through XII intact. Good gait. Good coordination SKIN: Warm, dry. Normal Color Course Vital Signs Vital signs: Vital Signs Temperature 97.8 F 08/21/24 12:43 Pulse Rate 94 08/21/24 12:43 Respiratory Rate 16 08/21/24 12:43 Blood Pressure 112/68 08/21/24 12:43 Pulse Oximetry 100 08/21/24 12:43 Temperature 97.8 F 08/21/24 12:43 Pulse Rate 94 08/21/24 14:27 Respiratory Rate 22 H 08/21/24 14:27 Blood Pressure 106/67 08/21/24 14:27 Pulse Oximetry 100 08/21/24 14:27 Procedures Feeding Tube Replacement Feeding Tube #1: Feeding Tube Placement Time: 13:27 Type of Tube: gastrostomy Insertion Site Prior to Procedure: clean Tube Used for Reinsertion: Maxwell Vietnamese Tube Size (F): 10 Verification of Placement: unable to verify Tube Secured by: tape/dressing Patient Tolerated Procedure: well and no complications Complications: unable to insert (Was initially unable to place a 16 Vietnamese G-tube so a 10 Vietnamese Maxwell catheter was placed without complication) Medical Decision Making MDM Narrative Medical decision making narrative: 74-year-old female presenting to the emergency department for evaluation for a dislodged G-tube. Initially I was unable to place the 16 Vietnamese G-tube and I was able to place a 10 Vietnamese Maxwell catheter. GI was consulted and Dr. Morton evaluated the patient in the emergency department and did place the 16 Vietnamese Gtube. X-ray does confirm placement of the G-tube within the stomach. Vital Signs Vital Signs: Vital Signs Temperature 97.8 F 08/21/24 12:43 Pulse Rate 94 08/21/24 12:43 Respiratory Rate 16 08/21/24 12:43 Blood Pressure 112/68 08/21/24 12:43 Pulse Oximetry 100 08/21/24 12:43 Temperature 97.8 F 08/21/24 12:43 Pulse Rate 94 08/21/24 14:27 Respiratory Rate 22 H 08/21/24 14:27 Blood Pressure 106/67 08/21/24 14:27 Pulse Oximetry 100 08/21/24 14:27 Discharge Plan Discharge Clinical Impression: Dislodged gastrostomy tube Patient Disposition: Home Condition: Stable Instructions: Antibiotic Form Additional Instructions: Your g-tube was confirmed to be in the correct location and you may use this as normal. Have close follow-up with your physicians as outpatient. Patient Language: French Prescriptions: No Action propafenone 150 mg Tablet 150 mg PO BID azithromycin 250 mg Tablet 250 mg PO DAILY aspirin 325 mg Tablet 325 mg PO DAILY sertraline 100 mg Tablet 100 mg PO DAILY zinc sulfate 220 mg Tablet 220 mg PO DAILY rifampin 300 mg Capsule 600 mg PO DAILY calcium carbonate [Calcium 600] 600 mg calcium (1,500 mg) Tablet 1,200 mg PO DAILY ethambutol 100 mg Tablet 700 mg PO DAILY propranolol 80 mg Capsule,Extended Release 24hr 80 mg PO DAILY rosuvastatin 10 mg Tablet 10 mg PO DAILY bupropion HCl 150 mg Tablet Extended Release 24 Hr 150 mg PO QAM cholecalciferol (vitamin D3) [Vitamin D3] 25 mcg (1,000 unit) Tablet 25 mcg PO DAILY Adults Multivitamin 18 mg iron-400 mcg-25 mcg Tablet 1 tablet PO DAILY Follow-up/Referrals: PHYSICIAN NOT ON STAFF,NONSTAFF [Primary Care Provider] -
--- NOTE | 2024-08-21 13:33 | PC.NURSE ---
g tube supplies placed at bedside for gi.
--- NOTE | 2024-08-21 13:49 | WPDGICN ---
Assessment and Plan Assessment and plan (1) Gastrostomy tube dysfunction: Code(s): K94.23 - Gastrostomy malfunction Status: Acute Assessment and Plan: 16 Filipino gastrostomy tube was replaced with moderate resistance, successfully. Patient had brief pain which subsided after 1 or 2 minutes. Balloon inflated with 5 mL of sterile water as wire weaver helper recommendations. GI Consult Note Consult date/time: 08/21/24 13:49 HPI: Celi Collins is a 74 year old female With severe pulmonary fibrosis and poor oral intake, depending on gastrostomy tube for feeding. This morning, her 16 Filipino tube became dislodged accidentally. The emergency room physician was able to recanalize the gastrostomy tract with the 12 Filipino Maxwell catheter. I was called to attempt a 16 Filipino gastrostomy tube replacement. Review of Systems Review of Systems: All systems reviewed & are unremarkable except as noted in HPI and below PMFSH Family History Family History (Updated 05/24/19 @ 11:37 by Jamaica Pyle RN) Father Family history of mental disorder CAD (coronary artery disease) of artery bypass graft Alzheimer's dementia Mother Pancreatic cancer Sibling Alzheimer's dementia Social History Social History Smoking status: Former smoker Tobacco type: cigarettes Smoking end date: 05/24/19 Alcohol intake: never Meds Home Medications and Allergies Home Medications ?Medication ?Instructions ?Recorded ?Confirmed ?Type aspirin 325 mg tablet 325 mg PO DAILY 06/01/19 06/01/19 History azithromycin 250 mg tablet 250 mg PO DAILY 06/01/19 06/01/19 History bupropion HCl 150 mg 24 hr tablet, 150 mg PO QAM 06/01/19 06/01/19 History extended release calcium carbonate (Calcium 600) 1,200 mg PO DAILY 06/01/19 06/01/19 History cholecalciferol (vitamin D3) 25 25 mcg PO DAILY 06/01/19 06/01/19 History mcg (1,000 unit) tablet (Vitamin D3) ethambutol 100 mg tablet 700 mg PO DAILY 06/01/19 06/01/19 History multivit with minerals-iron 18 1 tablet PO DAILY 06/01/19 06/01/19 History mg-folic ac 400 mcg-vit K 25 mcg tablet (Adults Multivitamin) propafenone 150 mg tablet 150 mg PO BID 06/01/19 06/01/19 History propranolol 80 mg capsule,extended 80 mg PO DAILY 06/01/19 06/01/19 History release 24 hr rifampin 300 mg capsule 600 mg PO DAILY 06/01/19 06/01/19 History rosuvastatin 10 mg tablet 10 mg PO DAILY 06/01/19 06/01/19 History sertraline 100 mg tablet 100 mg PO DAILY 06/01/19 06/01/19 History zinc sulfate 50 mg zinc (220 mg) 220 mg PO DAILY 06/01/19 06/01/19 History tablet Allergies Allergy/AdvReac Type Severity Reaction Status Date / Time Sulfa (Sulfonamide Allergy Mild Unknown Verified 08/21/24 12:55 Antibiotics) sumatriptan Allergy Mild Nausea Verified 08/21/24 12:55 topiramate Allergy Mild Nausea Verified 08/21/24 12:55 codeine Allergy Unknown Unknown Verified 08/21/24 12:55 Vital Signs Vital Signs - 24 hr 08/21/24 12:43 Temperature 97.8 F Pulse Rate 94 Respiratory Rate 16 Blood Pressure 112/68 Pulse Oximetry 100 Exam Narrative: gastrostomy tube tract cannulized with a thin, 12 Filipino Maxwell catheter.
--- NOTE | 2024-08-21 14:25 | PC.NURSE ---
xray at bedside at this time
[2024-08-21 14:27] VITALS: BP 106/67; PULSE 94; RESP 22; O2SAT 100
--- NOTE | 2024-08-21 15:19 | PC.NURSE ---
Discussed with patient approximate time of ETA for transport back to the patients home which is currently 1900 today. discussed with patient home health or palliative care and whether they could assist with transport home, patient stated that she has no other options besides transport by ambulance
== END 2024-08-21 17:07 | disposition home or self-care (01) ==
PROVIDERS: Emergency Provider Emergency Medicine
DX: Z43.1 Encounter for attention to gastrostomy (principal); J84.112 Idiopathic pulmonary fibrosis; Z87.891 Personal history of nicotine dependence; Z79.82 Long term (current) use of aspirin; Z79.899 Other long term (current) drug therapy
CPT/HCPCS: 43762; 99283